=== PATIENT | male | born 1950 | race Caucasian/White ===

== ENCOUNTER 2023-03-02 16:52 | Inpatient (IN) | payer MEDICARE ==
[2023-03-02 18:16] LABS: #Monocytes 0.6 thou/uL (0.11-0.59); #Neutrophils 11.6 thou/uL (1.40-6.50); %Basophils 0.3 % (0.0-1.0); %Lymphocytes 9.3 % (21.0-51.0); %Monocytes 4.5 % (0.0-10.0); %Neutrophils 85.4 % (42.0-75.0); Hematocrit 32.6 % (42.0-52.0); Hemoglobin 10.9 g/dL (14.0-18.0); Mean Corpuscular HGB CONC 33.4 g/dL (32.0-36.0); Mean Corpuscular Volume 86.7 fl (78.0-98.0); Mean Platelet Volume 10.6 fL (7.4-10.4); Platelet Count 183 10x3/uL (130-400); RBC Distribution Width 14.2 % (11.5-14.5); Red Blood Cell (RBC) Count 3.76 mill/uL (4.70-6.10); White Blood Cell (WBC) Count 13.6 10x3/uL (4.8-10.8)
[2023-03-02 18:38] LABS: ALT (SGPT) 7 U/L (8-55); AST (SGOT) 13 U/L (5-34); Albumin 3.4 g/dL (3.4-4.8); Alkaline Phosphatase 76 U/L (40-110); Anion Gap 13 mmol/L (10-20); BUN (Urea Nitrogen) 14 mg/dL (8.4-25.7); Bilirubin, Total 2.4 mg/dL (0.2-1.2); CK (CPK) 141 U/L (30-200); Calc. Creatinine Clearance 0 mL/min (70-130); Calcium 8.4 mg/dL (7.8-10.44); Carbon Dioxide 21 mmol/L (23-31); Chloride 99 mmol/L (98-107); Estimated GFR 71; Globulin 3.4 g/dL (2.4-3.5); Glucose 239 mg/dL (83-110); Potassium 3.8 mmol/L (3.5-5.1); Protein, Total 6.8 g/dL (5.8-8.1); Sodium 129 mmol/L (136-145)
[2023-03-02 19:04] LABS: Troponin I 0.026 ng/mL (< 0.028)
[2023-03-02] MEDS ORDERED: VANCOMYCIN 2 GRAM/500 ML BAG 2 GM in Premix Bag 1 BAG IVPB SCH (19:30)
[2023-03-02] MEDS ORDERED: Cefepime 2 GM VIAL ONE (20:05)
[2023-03-02 20:58] LABS: Bacteria/HPF None Seen HPF (None Seen); Bilirubin Negative (Negative); Blood, Urine Negative (Negative); CAUTI Indications for Culture Fever or rigors; Clarity Clear (Clear); Glucose, Urine (Dipstick) 100 mg/dL (Negative); Ketone, Urine Negative (Negative); Leukocyte 25 Leu/uL (Negative); Nitrite Negative (Negative); Protein, Urine (Dipstick) 10 mg/dL (Neg-Trace); RBC/HPF 0-3 HPF (0-3); Specific Gravity, Urine 1.012 (1.002-1.036); Squamous Epithelial 0-3 HPF (0-3); Urobilinogen Normal mg/dL (Less than 2)
[2023-03-02 20:59] LABS: Urine Culture Reflex No No
[2023-03-02] MEDS ORDERED: Dextrose 50% Abboject 50 ML SYRINGE SLOW IVP PRN (23:29)
[2023-03-02] MEDS ORDERED: Dextrose 5% in Water 1,000 ML IV PRN (23:29)
[2023-03-02] MEDS ORDERED: Glucagon 1 MG/ML KIT IM PRN (23:29)
[2023-03-02] MEDS ORDERED: Bisacodyl 5 MG TAB PO PRN (23:30)
[2023-03-03 00:32] VITALS: BMI 49.0
[2023-03-03] MEDS ORDERED: Furosemide 40 MG TAB PO SCH (07:30)
[2023-03-03] MEDS ORDERED: Cefepime 1 GM in Sodium Chloride 0.9% 100 ML IVPB SCH (08:00)
[2023-03-03] MEDS: Lisinopril 20 MG TAB PO SCH ×2 (08:19→20:11)
[2023-03-03] MEDS: Potassium Chloride 20 MEQ TAB PO SCH (08:20)
[2023-03-03] MEDS: Carvedilol 25 MG TAB PO SCH ×2 (08:20→17:23)
[2023-03-03] MEDS: Insulin Glargine 30 UNITS/0.3 ML VIAL SC SCH (08:20)
[2023-03-03] MEDS ORDERED: Vancomycin 1.5 GRAM/300 ML BAG 1.5 GM in Premix Bag 1 BAG IVPB SCH (09:00)
[2023-03-03] MEDS ORDERED: VANCOMYCIN 2 GRAM/500 ML BAG 2 GM in Premix Bag 1 BAG IVPB SCH (09:00)
[2023-03-03 09:52] LABS: #Basophils 0.1 thou/uL (0.0-0.2); #Eosinphils 0.1 thou/uL (0.0-0.7); #Monocytes 0.8 thou/uL (0.11-0.59); #Neutrophils 7.7 thou/uL (1.40-6.50); %Basophils 0.5 % (0.0-1.0); %Eosinophils 1.4 % (0.0-10.0); %Lymphocytes 13.6 % (21.0-51.0); %Monocytes 7.7 % (0.0-10.0); %Neutrophils 76.1 % (42.0-75.0); Hematocrit 34.6 % (42.0-52.0); Hemoglobin 11.1 g/dL (14.0-18.0); Mean Corpuscular HGB CONC 32.1 g/dL (32.0-36.0); Mean Corpuscular Hemoglobin 28.7 pg (27.0-31.0); Platelet Count 169 10x3/uL (130-400); RBC Distribution Width 14.5 % (11.5-14.5); Red Blood Cell (RBC) Count 3.87 mill/uL (4.70-6.10); White Blood Cell (WBC) Count 10.1 10x3/uL (4.8-10.8)
[2023-03-03 09:55] LABS: Mean Corpuscular Volume 89.4 fl (78.0-98.0)
[2023-03-03 10:15] LABS: ALT (SGPT) 7 U/L (8-55); AST (SGOT) 12 U/L (5-34); Albumin 2.9 g/dL (3.4-4.8); Alkaline Phosphatase 75 U/L (40-110); Anion Gap 9 mmol/L (10-20); BUN (Urea Nitrogen) 13 mg/dL (8.4-25.7); Bilirubin, Total 1.8 mg/dL (0.2-1.2); Calc. Creatinine Clearance 152 mL/min (70-130); Calcium 8.3 mg/dL (7.8-10.44); Carbon Dioxide 24 mmol/L (23-31); Chloride 103 mmol/L (98-107); Estimated GFR 85; Globulin 3.3 g/dL (2.4-3.5); Glucose 202 mg/dL (83-110); Protein, Total 6.2 g/dL (5.8-8.1); Sodium 132 mmol/L (136-145)
[2023-03-03] MEDS ORDERED: Electrolyte Replacement Protocol 1 EACH FS ONE (14:14)
[2023-03-03] MEDS ORDERED: Furosemide 40 MG/4 ML VIAL SLOW IVP SCH (14:15)
[2023-03-03] MEDS ORDERED: Electrolyte Replacement Protocol FS PRN (14:30)
[2023-03-03] MEDS: metFORMIN 500 MG TAB PO SCH (17:23)
[2023-03-03] MEDS: HumaLOG 300 UNITS/3 ML VIAL SC PRN (17:23)
[2023-03-03] MEDS: Atorvastatin Calcium 20 MG TAB PO SCH (20:12)
[2023-03-03] MEDS: Cefepime 2 GM in Sodium Chloride 0.9% 100 ML IVPB SCH (20:12)
[2023-03-03] MEDS: Terbinafine 1% Cream 15 GM Tube TOP SCH (20:14)
[2023-03-03] MEDS: Vancomycin 1 GM in Premix Bag 1 BAG IVPB SCH (20:59)
[2023-03-04] MEDS: HumaLOG 300 UNITS/3 ML VIAL SC PRN (05:53)
[2023-03-04] MEDS ORDERED: Furosemide 40 MG/4 ML VIAL SLOW IVP SCH (06:00)
[2023-03-04 08:38] LABS: #Basophils 0.1 thou/uL (0.0-0.2); #Eosinphils 0.3 thou/uL (0.0-0.7); #Monocytes 0.7 thou/uL (0.11-0.59); #Neutrophils 5.3 thou/uL (1.40-6.50); %Basophils 0.6 % (0.0-1.0); %Eosinophils 3.4 % (0.0-10.0); %Lymphocytes 22.2 % (21.0-51.0); %Neutrophils 65.3 % (42.0-75.0); Hematocrit 37.3 % (42.0-52.0); Mean Corpuscular HGB CONC 32.2 g/dL (32.0-36.0); Mean Corpuscular Hemoglobin 28.1 pg (27.0-31.0); Mean Corpuscular Volume 87.4 fl (78.0-98.0); Mean Platelet Volume 10.6 fL (7.4-10.4); Platelet Count 192 10x3/uL (130-400); RBC Distribution Width 14.3 % (11.5-14.5); Red Blood Cell (RBC) Count 4.27 mill/uL (4.70-6.10); White Blood Cell (WBC) Count 8.1 10x3/uL (4.8-10.8)
[2023-03-04] MEDS: Terbinafine 1% Cream 15 GM Tube TOP SCH ×2 (08:40→20:49)
[2023-03-04] MEDS: metFORMIN 500 MG TAB PO SCH ×2 (08:40→18:17)
[2023-03-04] MEDS: Potassium Chloride 20 MEQ TAB PO SCH ×2 (08:41→18:18)
[2023-03-04] MEDS: Lisinopril 20 MG TAB PO SCH ×2 (08:41→20:51)
[2023-03-04] MEDS: Cefepime 2 GM in Sodium Chloride 0.9% 100 ML IVPB SCH ×2 (08:41→20:43)
[2023-03-04] MEDS: FLUoxetine HCl 20 MG CAP PO SCH (08:41)
[2023-03-04] MEDS: Insulin Glargine 30 UNITS/0.3 ML VIAL SC SCH (08:41)
[2023-03-04] MEDS: Carvedilol 25 MG TAB PO SCH (08:41)
[2023-03-04] MEDS: Aquaphor 3.5 oz 99 GM JAR TOP SCH (08:42)
[2023-03-04 09:04] LABS: Anion Gap 12 mmol/L (10-20); BUN (Urea Nitrogen) 15 mg/dL (8.4-25.7); Calc. Creatinine Clearance 134 mL/min (70-130); Calcium 8.4 mg/dL (7.8-10.44); Carbon Dioxide 24 mmol/L (23-31); Chloride 101 mmol/L (98-107); Estimated GFR 76; Glucose 172 mg/dL (83-110); Magnesium 1.5 mg/dL (1.6-2.6); Potassium 3.3 mmol/L (3.5-5.1); Sodium 134 mmol/L (136-145)
[2023-03-04] MEDS: Vancomycin 1 GM in Premix Bag 1 BAG IVPB SCH ×2 (10:13→21:51)
[2023-03-04] MEDS ORDERED: Magnesium 2 GM/50 ML(in water) 2 GM in Premix Bag 1 BAG IVPB SCH (13:30)
[2023-03-04] MEDS ORDERED: Potassium Chloride 20 MEQ TAB PO SCH (13:30)
[2023-03-04] MEDS: Furosemide 100 MG/10 ML VIAL SLOW IVP SCH (13:32)
[2023-03-04] MEDS: HumaLOG 300 UNITS/3 ML VIAL SC SCH ×3 (13:33→21:48)
[2023-03-04] MEDS: Carvedilol 6.25 MG TAB PO SCH (18:17)
[2023-03-04 20:27] LABS: Vancomycin, Trough 19.9 ug/mL
[2023-03-04] MEDS: Atorvastatin Calcium 20 MG TAB PO SCH (20:44)
[2023-03-05] MEDS: Furosemide 100 MG/10 ML VIAL SLOW IVP SCH ×2 (06:30→14:45)
[2023-03-05 06:45] LABS: #Basophils 0.1 thou/uL (0.0-0.2); #Eosinphils 0.4 thou/uL (0.0-0.7); #Monocytes 0.7 thou/uL (0.11-0.59); #Neutrophils 4.4 thou/uL (1.40-6.50); %Basophils 0.7 % (0.0-1.0); %Eosinophils 5.1 % (0.0-10.0); %Lymphocytes 27.7 % (21.0-51.0); %Monocytes 8.7 % (0.0-10.0); %Neutrophils 57.4 % (42.0-75.0); Hematocrit 33.7 % (42.0-52.0); Hemoglobin 11.2 g/dL (14.0-18.0); Mean Corpuscular HGB CONC 33.2 g/dL (32.0-36.0); Mean Corpuscular Volume 87.3 fl (78.0-98.0); Mean Platelet Volume 10.9 fL (7.4-10.4); Platelet Count 216 10x3/uL (130-400); RBC Distribution Width 14.2 % (11.5-14.5); Red Blood Cell (RBC) Count 3.86 mill/uL (4.70-6.10); White Blood Cell (WBC) Count 7.6 10x3/uL (4.8-10.8)
[2023-03-05 07:09] LABS: Anion Gap 14 mmol/L (10-20); BUN (Urea Nitrogen) 16 mg/dL (8.4-25.7); Calc. Creatinine Clearance 164 mL/min (70-130); Calcium 8.1 mg/dL (7.8-10.44); Carbon Dioxide 23 mmol/L (23-31); Chloride 103 mmol/L (98-107); Estimated GFR 92; Glucose 172 mg/dL (83-110); Magnesium 1.6 mg/dL (1.6-2.6); Potassium 3.6 mmol/L (3.5-5.1); Sodium 136 mmol/L (136-145)
[2023-03-05] MEDS ORDERED: Potassium Chloride 20 MEQ TAB PO SCH (08:00)
[2023-03-05] MEDS ORDERED: Magnesium 2 GM/50 ML(in water) 2 GM in Premix Bag 1 BAG IVPB SCH (08:00)
[2023-03-05] MEDS: FLUoxetine HCl 20 MG CAP PO SCH (09:22)
[2023-03-05] MEDS: metFORMIN 500 MG TAB PO SCH ×2 (09:22→17:30)
[2023-03-05] MEDS: HumaLOG 300 UNITS/3 ML VIAL SC SCH ×4 (09:23→22:58)
[2023-03-05] MEDS: Carvedilol 6.25 MG TAB PO SCH ×2 (09:23→17:30)
[2023-03-05] MEDS: Insulin Glargine 30 UNITS/0.3 ML VIAL SC SCH (09:23)
[2023-03-05] MEDS: Potassium Chloride 20 MEQ TAB PO SCH ×2 (09:23→17:30)
[2023-03-05] MEDS: Lisinopril 20 MG TAB PO SCH ×2 (09:23→20:29)
[2023-03-05] MEDS: Vancomycin 1 GM in Premix Bag 1 BAG IVPB SCH ×2 (09:24→20:30)
[2023-03-05] MEDS: Terbinafine 1% Cream 15 GM Tube TOP SCH ×2 (09:24→20:35)
[2023-03-05] MEDS: Aquaphor 3.5 oz 99 GM JAR TOP SCH (09:24)
[2023-03-05] MEDS: Cefepime 2 GM in Sodium Chloride 0.9% 100 ML IVPB SCH ×2 (09:32→20:30)
[2023-03-05] MEDS: Atorvastatin Calcium 20 MG TAB PO SCH (20:29)
[2023-03-06 06:31] LABS: #Basophils 0.1 thou/uL (0.0-0.2); #Eosinphils 0.5 thou/uL (0.0-0.7); #Monocytes 0.7 thou/uL (0.11-0.59); %Basophils 0.9 % (0.0-1.0); %Lymphocytes 29.2 % (21.0-51.0); %Monocytes 9.3 % (0.0-10.0); %Neutrophils 53.8 % (42.0-75.0); Hemoglobin 11.3 g/dL (14.0-18.0); Mean Corpuscular HGB CONC 32.3 g/dL (32.0-36.0); Mean Corpuscular Hemoglobin 28.9 pg (27.0-31.0); Mean Corpuscular Volume 89.5 fl (78.0-98.0); Mean Platelet Volume 10.1 fL (7.4-10.4); Platelet Count 217 10x3/uL (130-400); RBC Distribution Width 14.3 % (11.5-14.5); Red Blood Cell (RBC) Count 3.91 mill/uL (4.70-6.10); White Blood Cell (WBC) Count 7.4 10x3/uL (4.8-10.8)
[2023-03-06] MEDS: Furosemide 100 MG/10 ML VIAL SLOW IVP SCH ×2 (06:32→12:13)
[2023-03-06 06:52] LABS: Anion Gap 13 mmol/L (10-20); BUN (Urea Nitrogen) 16 mg/dL (8.4-25.7); Calc. Creatinine Clearance 154 mL/min (70-130); Calcium 8.3 mg/dL (7.8-10.44); Carbon Dioxide 25 mmol/L (23-31); Chloride 101 mmol/L (98-107); Estimated GFR 91; Glucose 182 mg/dL (83-110); Magnesium 2.3 mg/dL (1.6-2.6); Potassium 3.7 mmol/L (3.5-5.1); Sodium 135 mmol/L (136-145)
[2023-03-06 08:22] LABS: Vancomycin, Trough 18.2 ug/mL
[2023-03-06] MEDS: metFORMIN 500 MG TAB PO SCH ×2 (08:30→15:10)
[2023-03-06] MEDS: Lisinopril 20 MG TAB PO SCH (08:30)
[2023-03-06] MEDS: Potassium Chloride 20 MEQ TAB PO SCH ×2 (08:30→15:10)
[2023-03-06] MEDS: Carvedilol 6.25 MG TAB PO SCH ×2 (08:30→15:10)
[2023-03-06] MEDS: FLUoxetine HCl 20 MG CAP PO SCH (08:30)
[2023-03-06] MEDS: Cefepime 2 GM in Sodium Chloride 0.9% 100 ML IVPB SCH (08:30)
[2023-03-06] MEDS: HumaLOG 300 UNITS/3 ML VIAL SC SCH ×3 (08:31→15:36)
[2023-03-06] MEDS: Terbinafine 1% Cream 15 GM Tube TOP SCH (08:43)
[2023-03-06] MEDS: Aquaphor 3.5 oz 99 GM JAR TOP SCH (08:43)
[2023-03-06] MEDS: Insulin Glargine 30 UNITS/0.3 ML VIAL SC SCH (10:51)
[2023-03-06] MEDS: Vancomycin 1 GM in Premix Bag 1 BAG IVPB SCH (10:52)
[2023-03-06 15:26] VITALS: BP 101/66; TEMP 97.6
== END 2023-03-06 17:54 | disposition home or self-care (01) | DRG 872 ==
LOC: ERS 16:52 → T4-A 21:29
PROVIDERS: ADMIT Internal Medicine Nephrology; ATTEND Internal Medicine
DX: A41.9 Sepsis, unspecified organism (principal); L03.115 Cellulitis of right lower limb; E87.1 Hypo-osmolality and hyponatremia; Z68.42 Body mass index [BMI] 45.0-49.9, adult; L03.116 Cellulitis of left lower limb; E78.5 Hyperlipidemia, unspecified; F32.A Depression, unspecified; E11.65 Type 2 diabetes mellitus with hyperglycemia; K21.9 Gastro-esophageal reflux disease without esophagitis; I87.2 Venous insufficiency (chronic) (peripheral); E66.01 Morbid (severe) obesity due to excess calories; I50.811 Acute right heart failure; I48.0 Paroxysmal atrial fibrillation; B35.1 Tinea unguium; I11.0 Hypertensive heart disease with heart failure; Z88.5 Allergy status to narcotic agent; Z88.2 Allergy status to sulfonamides; Z87.891 Personal history of nicotine dependence; Z79.4 Long term (current) use of insulin; Z79.899 Other long term (current) drug therapy; Z79.84 Long term (current) use of oral hypoglycemic drugs
CPT/HCPCS: 36415; 36416; 71045; 80048; 80053; 80202; 81001; 82550; 83605; 83735; 83880; 84484; 85025; 87040; 87086; 93005; 93306; 93970; 96365; 96366; 96367; 97139; J0692; J1650; J1815; J1940; J3370; J3370-JW; J3475; J3490

== ENCOUNTER 2023-07-23 23:34 | Inpatient (IN) | payer MEDICARE ==
[~2023-07-23 23:34] MED LIST: Iopamidol 370 76% 100 ML VIAL ONE
[2023-07-23 23:56] LABS: Actual Bicarbonate (HCO3v) 21.6 mEq/L (22-28); Analyzer IN Cardio ER; Base Excess -2.6 mEq/L (-2.0 to +3.0); Calcium, Ionized (venous) 1.07 mmol/L (1.16-1.32); Chloride (VBG) 101 mmol/L (98-106); Hematocrit-VBG 41 % (42.0-52.0); Hemoglobin (Hb) 14.1 g/dL (12.6-17.4); Potassium (VBG) 4.93 mmol/L (3.70-5.30); Sodium 137 mmol/L (133-146); pH (venous) 7.398 (7.32-7.43)
[2023-07-24] MEDS ORDERED: Furosemide 40 MG (4 mL) VIAL ONE ×2 (00:12→03:20)
[2023-07-24] MEDS ORDERED: Nitroglycerin 2% Ointment 1 INCH/1 GM Packet ONE (00:12)
[2023-07-24 00:34] LABS: #Basophils 0.1 thou/uL (0.0-0.2); #Eosinphils 0.4 thou/uL (0.0-0.7); #Monocytes 0.8 thou/uL (0.11-0.59); #Neutrophils 7.1 thou/uL (1.40-6.50); %Basophils 0.7 % (0.0-1.0); %Eosinophils 3.4 % (0.0-10.0); %Lymphocytes 18.9 % (21.0-51.0); %Monocytes 7.9 % (0.0-10.0); %Neutrophils 68.4 % (42.0-75.0); Hematocrit 42.1 % (42.0-52.0); Hemoglobin 13.1 g/dL (14.0-18.0); Mean Corpuscular HGB CONC 31.1 g/dL (32.0-36.0); Mean Corpuscular Hemoglobin 27.5 pg (27.0-31.0); Mean Corpuscular Volume 88.4 fl (78.0-98.0); Mean Platelet Volume 10.9 fL (7.4-10.4); Platelet Count 302 10x3/uL (130-400); Red Blood Cell (RBC) Count 4.76 mill/uL (4.70-6.10); White Blood Cell (WBC) Count 10.4 10x3/uL (4.8-10.8)
[2023-07-24 00:44] LABS: INR-International Normal Ratio 1.5; PTT 33.8 sec (22.9-36.1); Prothrombin Time 17.7 sec (12.0-14.7)
[2023-07-24 00:59] LABS: ALT (SGPT) 7 U/L (8-55); AST (SGOT) 16 U/L (5-34); Albumin 3.1 g/dL (3.4-4.8); Alkaline Phosphatase 100 U/L (40-110); Anion Gap 18 mmol/L (10-20); BUN (Urea Nitrogen) 8 mg/dL (8.4-25.7); Bilirubin, Total 1.7 mg/dL (0.2-1.2); Calc. Creatinine Clearance 0 mL/min (70-130); Calcium 8.2 mg/dL (7.8-10.44); Carbon Dioxide 23 mmol/L (23-31); Chloride 100 mmol/L (98-107); Estimated GFR 95; Globulin 3.8 g/dL (2.4-3.5); Glucose 231 mg/dL (83-110); Lipase Less than 4 U/L (8-78); Magnesium 1.6 mg/dL (1.6-2.6); Potassium 5.5 mmol/L (3.5-5.1); Protein, Total 6.9 g/dL (5.8-8.1); Sodium 135 mmol/L (136-145)
[2023-07-24 01:06] LABS: Troponin I Less than 0.010 ng/mL (< 0.028)
[2023-07-24] MEDS ORDERED: Cefepime 2 GM VIAL ONE (01:25)
[2023-07-24] MEDS ORDERED: Sodium Chloride 0.9% 100 ML ONE (01:25)
[2023-07-24 01:50] LABS: Bilirubin Negative (Negative); Blood, Urine Trace (Negative); Clarity Clear (Clear); Glucose, Urine (Dipstick) 250 mg/dL (Negative); Ketone, Urine 15 mg/dL (Negative); Leukocyte Negative (Negative); Nitrite Negative (Negative); Protein, Urine (Dipstick) Negative (Neg-Trace); Specific Gravity, Urine 1.025 (1.005-1.030); Urobilinogen 0.2 mg/dL (Less than 2)
[2023-07-24 02:01] LABS: Bacteria/HPF None Seen HPF (None Seen); CAUTI Indications for Culture Alt mental st,lethar; RBC/HPF 0-3 HPF (0-3); Squamous Epithelial 0-3 HPF (0-3)
[2023-07-24 02:02] LABS: Urine Culture Reflex No No
[2023-07-24] MEDS ORDERED: Nitroglycerin 0.4 MG TAB (25 Tab Bottle) ONE (03:21)
[2023-07-24] MEDS ORDERED: Vancomycin (BATCH) 2 GM in Premix 1 BAG IVPB SCH (03:30)
[2023-07-24 03:42] LABS: Anion Gap 17 mmol/L (10-20); BUN (Urea Nitrogen) 8 mg/dL (8.4-25.7); Calc. Creatinine Clearance 0 mL/min (70-130); Calcium 8.2 mg/dL (7.8-10.44); Carbon Dioxide 22 mmol/L (23-31); Chloride 101 mmol/L (98-107); Estimated GFR 93; Glucose 234 mg/dL (83-110); Potassium 4.8 mmol/L (3.5-5.1); Sodium 135 mmol/L (136-145)
[2023-07-24 03:47] LABS: Troponin I 0.183 ng/mL (< 0.028)
[2023-07-24] MEDS ORDERED: Glucagon 1 MG/ML KIT IM PRN (03:47)
[2023-07-24] MEDS ORDERED: Ondansetron PF 4 MG/2 ML Vial IVP PRN (03:47)
[2023-07-24] MEDS ORDERED: Dextrose 50% Abboject 50 ML SYRINGE SLOW IVP PRN (03:47)
[2023-07-24] MEDS ORDERED: Dextrose 5% in Water 1,000 ML IV PRN (03:47)
[2023-07-24] MEDS ORDERED: Acetaminophen 325 MG TAB PO PRN (03:47)
[2023-07-24] MEDS ORDERED: Acetaminophen 650 MG Suppository PR PRN (03:47)
[2023-07-24] MEDS ORDERED: Enoxaparin 120 MG/0.8 ML SYRINGE SC SCH (05:30)
[2023-07-24] MEDS ORDERED: Enoxaparin 30 MG (0.3 mL) SYRINGE SC SCH (05:30)
[2023-07-24 06:06] LABS: SARS-CoV-2 NAA Rapid Test Not Detected (NotDetected)
[2023-07-24] MEDS ORDERED: Electrolyte Replacement Protocol 1 EACH FS SCH (06:15)
[2023-07-24] MEDS ORDERED: Magnesium 2 GM/50 ML(in water) 2 GM in Premix 1 BAG IVPB SCH (06:15)
[2023-07-24] MEDS ORDERED: Electrolyte Replacement Protocol FS PRN (06:15)
[2023-07-24 06:48] LABS: Magnesium 1.5 mg/dL (1.6-2.6)
[2023-07-24 07:21] LABS: Troponin I 0.288 ng/mL (< 0.028)
[2023-07-24] MEDS: HumaLOG 300 UNITS/3 ML VIAL SC PRN ×3 (07:51→19:58)
[2023-07-24] MEDS ORDERED: Cefepime 2 GM in Sodium Chloride 0.9% 100 ML IVPB SCH (09:00)
[2023-07-24] MEDS ORDERED: Enoxaparin 40 MG (0.4 mL) SYRINGE SC SCH (09:00)
[2023-07-24] MEDS ORDERED: Aspirin 81 mg Enteric Coated Tablet PO SCH (10:00)
[2023-07-24 12:01] LABS: Legionella Urinary Ag Negative (Negative); Strep pneumo Urine Ag NEGATIVE (NEGATIVE)
[2023-07-24] MEDS: Furosemide 40 MG (4 mL) VIAL SLOW IVP SCH (13:21)
[2023-07-24] MEDS: Cefepime 2 GM in Sodium Chloride 0.9% 100 ML IVPB SCH (13:21)
[2023-07-24] MEDS: Enoxaparin 120 MG/0.8 ML SYRINGE SC SCH (19:52)
[2023-07-24] MEDS: Carvedilol 6.25 MG TAB PO SCH (19:53)
[2023-07-24] MEDS: Atorvastatin Calcium 20 MG TAB PO SCH (19:53)
[2023-07-24] MEDS: Enoxaparin 30 MG (0.3 mL) SYRINGE SC SCH (19:53)
[2023-07-24] MEDS: Amiodarone 200 MG TAB PO SCH (19:53)
[2023-07-25] MEDS: Cefepime 2 GM in Sodium Chloride 0.9% 100 ML IVPB SCH ×2 (02:18→14:53)
[2023-07-25 05:49] LABS: #Eosinphils 0.6 thou/uL (0.0-0.7); #Monocytes 0.7 thou/uL (0.11-0.59); #Neutrophils 3.1 thou/uL (1.40-6.50); %Basophils 0.6 % (0.0-1.0); %Eosinophils 8.9 % (0.0-10.0); %Lymphocytes 29.6 % (21.0-51.0); %Neutrophils 49.1 % (42.0-75.0); Hematocrit 36.3 % (42.0-52.0); Hemoglobin 11.5 g/dL (14.0-18.0); Mean Corpuscular HGB CONC 31.7 g/dL (32.0-36.0); Mean Corpuscular Hemoglobin 28.2 pg (27.0-31.0); Mean Platelet Volume 10.3 fL (7.4-10.4); Platelet Count 272 10x3/uL (130-400); RBC Distribution Width 14.2 % (11.5-14.5); Red Blood Cell (RBC) Count 4.08 mill/uL (4.70-6.10); White Blood Cell (WBC) Count 6.3 10x3/uL (4.8-10.8)
[2023-07-25 06:09] LABS: Anion Gap 12 mmol/L (10-20); BUN (Urea Nitrogen) 11 mg/dL (8.4-25.7); Calc. Creatinine Clearance 163 mL/min (70-130); Carbon Dioxide 30 mmol/L (23-31); Cardiac Risk 3.7 (Less than 4.5); Chloride 98 mmol/L (98-107); Cholesterol 99 mg/dl (< 200 Desired); Estimated GFR 92; Glucose 231 mg/dL (83-110); HDL Cholesterol 27 mg/dL (>60 Neg Risk); LDL Cholesterol, Calculated 51 mg/dL; Magnesium 1.6 mg/dL (1.6-2.6); Potassium 3.7 mmol/L (3.5-5.1); Sodium 136 mmol/L (136-145); Triglycerides 106 mg/dL (Less than 150)
[2023-07-25] MEDS: Furosemide 40 MG (4 mL) VIAL SLOW IVP SCH ×2 (06:21→17:50)
[2023-07-25] MEDS: HumaLOG 300 UNITS/3 ML VIAL SC PRN ×4 (06:21→20:31)
[2023-07-25] MEDS ORDERED: Magnesium 2 GM/50 ML(in water) 2 GM in Premix 1 BAG IVPB SCH (08:00)
[2023-07-25] MEDS: Magnesium Oxide 400 MG TAB PO SCH (08:59)
[2023-07-25] MEDS: Aspirin Chewable 81 MG TAB PO SCH (08:59)
[2023-07-25] MEDS: FLUoxetine HCl 20 MG CAP PO SCH (09:00)
[2023-07-25] MEDS: Carvedilol 6.25 MG TAB PO SCH ×3 (09:00→20:51)
[2023-07-25] MEDS: BuPROPion XL 150 MG ER.TAB PO SCH (09:00)
[2023-07-25] MEDS ORDERED: BuPROPion XL 150 MG ER.TAB PO SCH (09:00)
[2023-07-25] MEDS: Amiodarone 200 MG TAB PO SCH ×3 (09:00→20:51)
[2023-07-25] MEDS: Enoxaparin 120 MG/0.8 ML SYRINGE SC SCH ×2 (09:00→20:29)
[2023-07-25] MEDS: Enoxaparin 30 MG (0.3 mL) SYRINGE SC SCH ×2 (09:01→20:29)
[2023-07-25] MEDS: Atorvastatin Calcium 20 MG TAB PO SCH (20:30)
[2023-07-26] MEDS: Cefepime 2 GM in Sodium Chloride 0.9% 100 ML IVPB SCH ×2 (02:14→14:17)
[2023-07-26 05:58] LABS: #Basophils 0.1 thou/uL (0.0-0.2); #Eosinphils 0.6 thou/uL (0.0-0.7); #Monocytes 0.8 thou/uL (0.11-0.59); #Neutrophils 3.5 thou/uL (1.40-6.50); %Basophils 0.9 % (0.0-1.0); %Eosinophils 8.1 % (0.0-10.0); %Lymphocytes 32.2 % (21.0-51.0); %Monocytes 11.1 % (0.0-10.0); Hematocrit 37.8 % (42.0-52.0); Hemoglobin 11.9 g/dL (14.0-18.0); Mean Corpuscular HGB CONC 31.5 g/dL (32.0-36.0); Mean Corpuscular Hemoglobin 27.8 pg (27.0-31.0); Mean Corpuscular Volume 88.3 fl (78.0-98.0); Mean Platelet Volume 10.4 fL (7.4-10.4); Platelet Count 288 10x3/uL (130-400); RBC Distribution Width 14.2 % (11.5-14.5); Red Blood Cell (RBC) Count 4.28 mill/uL (4.70-6.10); White Blood Cell (WBC) Count 7.4 10x3/uL (4.8-10.8)
[2023-07-26 06:26] LABS: Anion Gap 11 mmol/L (10-20); BUN (Urea Nitrogen) 13 mg/dL (8.4-25.7); Calc. Creatinine Clearance 164 mL/min (70-130); Carbon Dioxide 31 mmol/L (23-31); Chloride 97 mmol/L (98-107); Estimated GFR 93; Glucose 236 mg/dL (83-110); Potassium 3.6 mmol/L (3.5-5.1); Sodium 135 mmol/L (136-145)
[2023-07-26] MEDS: HumaLOG 300 UNITS/3 ML VIAL SC PRN ×4 (06:27→21:07)
[2023-07-26] MEDS: Enoxaparin 30 MG (0.3 mL) SYRINGE SC SCH (09:32)
[2023-07-26] MEDS: Magnesium Oxide 400 MG TAB PO SCH (09:32)
[2023-07-26] MEDS: Enoxaparin 120 MG/0.8 ML SYRINGE SC SCH (09:32)
[2023-07-26] MEDS: BuPROPion XL 150 MG ER.TAB PO SCH (09:33)
[2023-07-26] MEDS: Aspirin Chewable 81 MG TAB PO SCH (09:33)
[2023-07-26] MEDS: Carvedilol 6.25 MG TAB PO SCH ×2 (09:33→21:03)
[2023-07-26] MEDS: Furosemide 40 MG (4 mL) VIAL SLOW IVP SCH (09:33)
[2023-07-26] MEDS: FLUoxetine HCl 20 MG CAP PO SCH (09:33)
[2023-07-26] MEDS: Amiodarone 200 MG TAB PO SCH ×2 (09:33→21:03)
[2023-07-26] MEDS ORDERED: Communication Order-Pharmacy FS SCH (10:15)
[2023-07-26] MEDS: Atorvastatin Calcium 20 MG TAB PO SCH (21:03)
[2023-07-27] MEDS: Cefepime 2 GM in Sodium Chloride 0.9% 100 ML IVPB SCH ×2 (02:04→13:57)
[2023-07-27] MEDS: Carvedilol 6.25 MG TAB PO SCH (05:54)
[2023-07-27] MEDS ORDERED: Sodium Chloride 0.9% 1,000 ML IV SCH ×2 (06:00→09:09)
[2023-07-27 06:01] LABS: Anion Gap 12 mmol/L (10-20); BUN (Urea Nitrogen) 12 mg/dL (8.4-25.7); Calc. Creatinine Clearance 162 mL/min (70-130); Calcium 7.8 mg/dL (7.8-10.44); Carbon Dioxide 30 mmol/L (23-31); Chloride 99 mmol/L (98-107); Estimated GFR 93; Glucose 261 mg/dL (83-110); Potassium 3.5 mmol/L (3.5-5.1); Sodium 137 mmol/L (136-145)
[2023-07-27] MEDS: HumaLOG 300 UNITS/3 ML VIAL SC PRN ×4 (06:17→21:36)
[2023-07-27] MEDS ORDERED: Heparin 10,000 UNITS/ 10 ML VIAL ONE (06:59)
[2023-07-27] MEDS ORDERED: Midazolam HCl 2 mg/2 ml Vial ONE (08:03)
[2023-07-27] MEDS ORDERED: fentaNYL 50 mcg/mL 1 mL Vial ONE (08:03)
[2023-07-27] MEDS ORDERED: Protamine Sulfate 50 MG/5 ML VIAL ONE (08:43)
[2023-07-27] MEDS ORDERED: Nitroglycerin 0.4 MG TAB (25 Tab Bottle) SL PRN (09:06)
[2023-07-27] MEDS ORDERED: Sodium Chloride 0.9% 200 ML IV PRN (09:06)
[2023-07-27] MEDS: Furosemide 40 MG (4 mL) VIAL SLOW IVP SCH (09:43)
[2023-07-27] MEDS: FLUoxetine HCl 20 MG CAP PO SCH (09:43)
[2023-07-27] MEDS: Potassium Chloride 20 MEQ in Premix 1 BAG IVPB SCH ×2 (09:43→13:54)
[2023-07-27] MEDS: Aspirin Chewable 81 MG TAB PO SCH (09:44)
[2023-07-27] MEDS: Magnesium Oxide 400 MG TAB PO SCH (09:44)
[2023-07-27] MEDS: BuPROPion XL 150 MG ER.TAB PO SCH (09:44)
[2023-07-27] MEDS: Amiodarone 200 MG TAB PO SCH ×2 (09:46→21:34)
[2023-07-27] MEDS ORDERED: Iopamidol 370 76% 100 ML VIAL ONE (12:16)
[2023-07-27] MEDS: Carvedilol 3.125 MG TAB PO SCH (17:15)
[2023-07-27 20:24] LABS: Potassium 4.1 mmol/L (3.5-5.1)
[2023-07-27] MEDS: Atorvastatin Calcium 20 MG TAB PO SCH (21:34)
[2023-07-28] MEDS: Cefepime 2 GM in Sodium Chloride 0.9% 100 ML IVPB SCH ×2 (01:12→13:26)
[2023-07-28] MEDS: HumaLOG 300 UNITS/3 ML VIAL SC PRN ×3 (05:35→20:46)
[2023-07-28 05:56] LABS: Magnesium 1.7 mg/dL (1.6-2.6); Phosphorus 2.5 mg/dL (2.3-4.7)
[2023-07-28] MEDS ORDERED: Magnesium 2 GM/50 ML(in water) 2 GM in Premix 1 BAG IVPB SCH (08:00)
[2023-07-28] MEDS: Amiodarone 200 MG TAB PO SCH ×2 (09:44→20:40)
[2023-07-28] MEDS: Sacubitril 24MG/Valsartan 26 MG TAB PO SCH ×2 (09:44→20:40)
[2023-07-28] MEDS: FLUoxetine HCl 20 MG CAP PO SCH (09:44)
[2023-07-28] MEDS: Aspirin Chewable 81 MG TAB PO SCH (09:44)
[2023-07-28] MEDS: Furosemide 40 MG (4 mL) VIAL SLOW IVP SCH (09:45)
[2023-07-28] MEDS: BuPROPion XL 150 MG ER.TAB PO SCH (09:45)
[2023-07-28] MEDS: Carvedilol 3.125 MG TAB PO SCH ×2 (09:45→17:21)
[2023-07-28] MEDS: Magnesium Oxide 400 MG TAB PO SCH (09:45)
[2023-07-28] MEDS: Atorvastatin Calcium 20 MG TAB PO SCH (20:40)
[2023-07-29] MEDS: Cefepime 2 GM in Sodium Chloride 0.9% 100 ML IVPB SCH ×2 (01:56→17:10)
[2023-07-29] MEDS: HumaLOG 300 UNITS/3 ML VIAL SC PRN ×4 (06:28→20:42)
[2023-07-29 07:00] LABS: Magnesium 2.5 mg/dL (1.6-2.6)
[2023-07-29] MEDS: FLUoxetine HCl 20 MG CAP PO SCH (09:35)
[2023-07-29] MEDS: Aspirin Chewable 81 MG TAB PO SCH (09:35)
[2023-07-29] MEDS: Furosemide 40 MG (4 mL) VIAL SLOW IVP SCH (09:36)
[2023-07-29] MEDS: BuPROPion XL 150 MG ER.TAB PO SCH (09:36)
[2023-07-29] MEDS: Sacubitril 24MG/Valsartan 26 MG TAB PO SCH ×2 (09:36→20:40)
[2023-07-29] MEDS: Amiodarone 200 MG TAB PO SCH ×2 (09:36→20:40)
[2023-07-29] MEDS: Magnesium Oxide 400 MG TAB PO SCH (09:36)
[2023-07-29] MEDS: Carvedilol 3.125 MG TAB PO SCH ×2 (12:45→17:10)
[2023-07-29] MEDS: Atorvastatin Calcium 20 MG TAB PO SCH (20:40)
[2023-07-29] MEDS: metFORMIN 500 MG TAB PO SCH (21:01)
[2023-07-30] MEDS: Cefepime 2 GM in Sodium Chloride 0.9% 100 ML IVPB SCH ×2 (01:38→13:56)
[2023-07-30 05:35] LABS: Anion Gap 11 mmol/L (10-20); BUN (Urea Nitrogen) 8 mg/dL (8.4-25.7); Calc. Creatinine Clearance 170 mL/min (70-130); Carbon Dioxide 30 mmol/L (23-31); Chloride 99 mmol/L (98-107); Estimated GFR 95; Glucose 254 mg/dL (83-110); Potassium 3.3 mmol/L (3.5-5.1); Sodium 137 mmol/L (136-145)
[2023-07-30] MEDS: HumaLOG 300 UNITS/3 ML VIAL SC PRN ×3 (06:27→18:26)
[2023-07-30] MEDS: Sacubitril 24MG/Valsartan 26 MG TAB PO SCH ×2 (09:45→20:31)
[2023-07-30] MEDS: Carvedilol 3.125 MG TAB PO SCH ×2 (09:45→16:07)
[2023-07-30] MEDS: Aspirin Chewable 81 MG TAB PO SCH (09:45)
[2023-07-30] MEDS: Amiodarone 200 MG TAB PO SCH ×2 (09:46→20:31)
[2023-07-30] MEDS: metFORMIN 500 MG TAB PO SCH ×2 (09:46→20:31)
[2023-07-30] MEDS: Magnesium Oxide 400 MG TAB PO SCH (09:46)
[2023-07-30] MEDS: Furosemide 40 MG (4 mL) VIAL SLOW IVP SCH (09:46)
[2023-07-30] MEDS: BuPROPion XL 150 MG ER.TAB PO SCH (09:54)
[2023-07-30] MEDS: FLUoxetine HCl 20 MG CAP PO SCH (09:54)
[2023-07-30] MEDS ORDERED: Potassium Chloride 20 MEQ TAB PO SCH (13:30)
[2023-07-30] MEDS: Atorvastatin Calcium 20 MG TAB PO SCH (20:31)
[2023-07-30] MEDS: Ondansetron ODT 4 MG TAB PO PRN (23:52)
[2023-07-31] MEDS: HumaLOG 300 UNITS/3 ML VIAL SC PRN ×4 (00:20→21:10)
[2023-07-31] MEDS: Cefepime 2 GM in Sodium Chloride 0.9% 100 ML IVPB SCH ×2 (02:10→14:31)
[2023-07-31 07:43] LABS: Anion Gap 9 mmol/L (10-20); BUN (Urea Nitrogen) 11 mg/dL (8.4-25.7); Calc. Creatinine Clearance 158 mL/min (70-130); Calcium 8.2 mg/dL (7.8-10.44); Carbon Dioxide 30 mmol/L (23-31); Chloride 100 mmol/L (98-107); Estimated GFR 93; Glucose 213 mg/dL (83-110); Potassium 3.7 mmol/L (3.5-5.1); Sodium 135 mmol/L (136-145)
[2023-07-31] MEDS: FLUoxetine HCl 20 MG CAP PO SCH (09:02)
[2023-07-31] MEDS: metFORMIN 500 MG TAB PO SCH ×2 (09:03→21:09)
[2023-07-31] MEDS: Amiodarone 200 MG TAB PO SCH ×2 (09:03→21:08)
[2023-07-31] MEDS: BuPROPion XL 150 MG ER.TAB PO SCH (09:03)
[2023-07-31] MEDS: Aspirin Chewable 81 MG TAB PO SCH (09:04)
[2023-07-31] MEDS: Sacubitril 24MG/Valsartan 26 MG TAB PO SCH ×2 (09:04→21:10)
[2023-07-31] MEDS: Furosemide 40 MG (4 mL) VIAL SLOW IVP SCH (09:04)
[2023-07-31] MEDS: Carvedilol 3.125 MG TAB PO SCH ×2 (09:04→17:29)
[2023-07-31] MEDS: Magnesium Oxide 400 MG TAB PO SCH (09:04)
[2023-07-31] MEDS ORDERED: Dextrose 50% Abboject 50 ML SYRINGE SLOW IVP PRN (11:25)
[2023-07-31] MEDS: Atorvastatin Calcium 20 MG TAB PO SCH (21:08)
[2023-08-01] MEDS: Cefepime 2 GM in Sodium Chloride 0.9% 100 ML IVPB SCH ×2 (02:51→14:37)
[2023-08-01] MEDS: HumaLOG 300 UNITS/3 ML VIAL SC PRN ×4 (06:09→20:30)
[2023-08-01] MEDS: Aspirin Chewable 81 MG TAB PO SCH (09:45)
[2023-08-01] MEDS: metFORMIN 500 MG TAB PO SCH ×2 (09:46→20:29)
[2023-08-01] MEDS: Carvedilol 3.125 MG TAB PO SCH ×2 (09:46→17:21)
[2023-08-01] MEDS: Sacubitril 24MG/Valsartan 26 MG TAB PO SCH ×2 (09:46→20:29)
[2023-08-01] MEDS: FLUoxetine HCl 20 MG CAP PO SCH (09:47)
[2023-08-01] MEDS: BuPROPion XL 150 MG ER.TAB PO SCH (09:47)
[2023-08-01] MEDS: Magnesium Oxide 400 MG TAB PO SCH (09:48)
[2023-08-01] MEDS: Amiodarone 200 MG TAB PO SCH ×2 (09:48→20:29)
[2023-08-01] MEDS: Furosemide 40 MG (4 mL) VIAL SLOW IVP SCH (09:49)
[2023-08-01] MEDS: Ondansetron ODT 4 MG TAB PO PRN (14:37)
[2023-08-01] MEDS ORDERED: Enoxaparin 40 MG (0.4 mL) SYRINGE SC SCH (14:45)
[2023-08-01] MEDS: Atorvastatin Calcium 20 MG TAB PO SCH (20:29)
[2023-08-02] MEDS ORDERED: Enoxaparin 40 MG (0.4 mL) SYRINGE SC SCH (09:00)
[2023-08-02] MEDS ORDERED: Communication Order-Pharmacy FS PRN (11:37)
[2023-08-02] MEDS: HumaLOG 300 UNITS/3 ML VIAL SC PRN ×2 (12:44→17:18)
[2023-08-02] MEDS: Carvedilol 3.125 MG TAB PO SCH ×2 (14:01→17:18)
[2023-08-02] MEDS: Amiodarone 200 MG TAB PO SCH ×2 (14:02→21:47)
[2023-08-02] MEDS: Aspirin Chewable 81 MG TAB PO SCH (14:02)
[2023-08-02] MEDS: BuPROPion XL 150 MG ER.TAB PO SCH (14:02)
[2023-08-02] MEDS: FLUoxetine HCl 20 MG CAP PO SCH (14:03)
[2023-08-02] MEDS: Furosemide 40 MG (4 mL) VIAL SLOW IVP SCH (14:03)
[2023-08-02] MEDS: Magnesium Oxide 400 MG TAB PO SCH (14:04)
[2023-08-02] MEDS: Sacubitril 24MG/Valsartan 26 MG TAB PO SCH ×2 (14:04→21:46)
[2023-08-02] MEDS: Cefepime 2 GM in Sodium Chloride 0.9% 100 ML IVPB SCH ×2 (14:06→15:17)
[2023-08-02] MEDS: metFORMIN 500 MG TAB PO SCH (14:07)
[2023-08-02] MEDS ORDERED: Atorvastatin Calcium 40 MG TAB PO SCH (21:00)
[2023-08-03] MEDS: Cefepime 2 GM in Sodium Chloride 0.9% 100 ML IVPB SCH (02:13)
[2023-08-03] MEDS: Carvedilol 3.125 MG TAB PO SCH (05:30)
[2023-08-03 06:16] LABS: INR-International Normal Ratio 1.3; Prothrombin Time 16.1 sec (12.0-14.7)
[2023-08-03 06:36] LABS: Hematocrit 38.6 % (42.0-52.0); Hemoglobin 11.9 g/dL (14.0-18.0); Mean Corpuscular HGB CONC 30.8 g/dL (32.0-36.0); Mean Corpuscular Volume 87.5 fl (78.0-98.0); Mean Platelet Volume 11.2 fL (7.4-10.4); Platelet Count 215 10x3/uL (130-400); RBC Distribution Width 14.4 % (11.5-14.5); Red Blood Cell (RBC) Count 4.41 mill/uL (4.70-6.10); White Blood Cell (WBC) Count 6.8 10x3/uL (4.8-10.8)
[2023-08-03 06:59] LABS: Anion Gap 12 mmol/L (10-20); BUN (Urea Nitrogen) 11 mg/dL (8.4-25.7); Calc. Creatinine Clearance 145 mL/min (70-130); Calcium 8.2 mg/dL (7.8-10.44); Carbon Dioxide 27 mmol/L (23-31); Chloride 101 mmol/L (98-107); Estimated GFR 91; Glucose 154 mg/dL (83-110); Potassium 3.7 mmol/L (3.5-5.1); Sodium 136 mmol/L (136-145)
[2023-08-03] MEDS ORDERED: Heparin 10,000 UNITS/1 ML VIAL 30,000 UNITS in Sodium Chloride 0.9% 1,000 ML FS SCH (09:30)
[2023-08-03] MEDS ORDERED: CEFAZOLIN 2 GM VIAL ONE (10:44)
[2023-08-03] MEDS ORDERED: Sodium Chloride 0.9% 100 ML ONE ×2 (10:44→12:56)
[2023-08-03] MEDS ORDERED: Midazolam HCl 2 mg/2 ml Vial ONE (10:50)
[2023-08-03] MEDS ORDERED: ePHEDrine Sulfate 50 MG/10 ML VIAL ONE ×2 (10:50→16:12)
[2023-08-03] MEDS ORDERED: Fentanyl 250 MCG/5 ML VIAL ONE (10:50)
[2023-08-03] MEDS ORDERED: PROPOFOL 20 ML ONE (10:50)
[2023-08-03] MEDS ORDERED: Norepinephrine 4 MG/4 ML VIAL ONE (10:54)
[2023-08-03] MEDS ORDERED: Aminocaproic Acid 5 GM/20 ML VIAL ONE ×2 (10:54→11:37)
[2023-08-03] MEDS ORDERED: Rocuronium Bromide 10 MG/ML (10ML VIAL) ONE ×3 (10:54→16:12)
[2023-08-03] MEDS ORDERED: Esmolol 100 MG/10 ML VIAL ONE (10:54)
[2023-08-03] MEDS ORDERED: PHENYLEPHRINE-NS 100 MCG/ML 10 ML SYRINGE ONE ×2 (10:55→11:22)
[2023-08-03] MEDS ORDERED: Lidocaine 2% PF 5 ML VIAL ONE (10:55)
[2023-08-03] MEDS ORDERED: Lidocaine 2% PF 100 mg/5 ml Syringe ONE ×2 (10:55→11:37)
[2023-08-03] MEDS ORDERED: Lidocaine 1% MPF 2 ML VIAL ONE (11:01)
[2023-08-03] MEDS ORDERED: Bupivacaine PF 0.5% 30 ML VIAL ONE (11:22)
[2023-08-03] MEDS ORDERED: EPINEPHrine 1 MG/ML VIAL ONE (11:22)
[2023-08-03] MEDS ORDERED: Albumin 5% 500 ML ONE (11:23)
[2023-08-03] MEDS ORDERED: Calcium Chloride 1 GM/10 ML Abboject SYRINGE ONE (11:37)
[2023-08-03] MEDS ORDERED: Heparin 5,000 UNITS/ML VIAL ONE (11:37)
[2023-08-03] MEDS ORDERED: Magnesium 5 GM/10 ML VIAL ONE (11:37)
[2023-08-03] MEDS ORDERED: Heparin 30,000 units/30 ml VIAL ONE (11:37)
[2023-08-03] MEDS ORDERED: Vancomycin 1 GM VIAL ONE (11:37)
[2023-08-03] MEDS ORDERED: Protamine Sulfate 250 MG/25 ML VIAL ONE (11:37)
[2023-08-03] MEDS ORDERED: Papaverine 60 MG/2 ML VIAL ONE (11:37)
[2023-08-03] MEDS ORDERED: Cardioplegic Soln 1,000 ML BAG ONE (11:37)
[2023-08-03] MEDS ORDERED: Thrombin 5000 UNITS/5 ML VIAL ONE (11:37)
[2023-08-03] MEDS ORDERED: Potassium Chloride 60 mEq (30 mL) VIAL ONE (11:37)
[2023-08-03] MEDS ORDERED: Sodium Bicarb 50 mEq/50 ML VIAL ONE (11:37)
[2023-08-03] MEDS ORDERED: Mannitol 12.5 GM/50 ML ONE (11:37)
[2023-08-03] MEDS ORDERED: Insulin Regular 300 UNITS/3 ML VIAL ONE (12:47)
[2023-08-03] MEDS ORDERED: Sodium Chloride 0.9% 250 ML 250 ML ONE (12:56)
[2023-08-03] MEDS ORDERED: Guaifenesin DM 100-10/5 ML UDCUP PO PRN (16:31)
[2023-08-03] MEDS ORDERED: Bisacodyl 10 MG SUPP PR PRN (16:31)
[2023-08-03] MEDS ORDERED: niCARdipine 25 MG in Sodium Chloride 0.9% 250 ML 250 ML IVPB PRN (16:31)
[2023-08-03] MEDS ORDERED: fentaNYL 50 mcg/mL 1 mL Vial SLOW IVP PRN ×2 (16:31)
[2023-08-03] MEDS ORDERED: Mag-Al 1200 mg/1200 mg/30 ML UDCUP PO PRN (16:31)
[2023-08-03] MEDS ORDERED: Acetaminophen 325 MG TAB PO PRN (16:31)
[2023-08-03] MEDS ORDERED: Ondansetron PF 4 MG/2 ML Vial IVP PRN (16:31)
[2023-08-03] MEDS ORDERED: HYDROcodone/Acetaminophen 5/325 mg Tablet PO PRN (16:31)
[2023-08-03] MEDS ORDERED: Post-Op Insulin Drip Protocol IVPB SCH (16:31)
[2023-08-03] MEDS ORDERED: Hetastarch 6% 500 ML 500 ML IVPB PRN (16:31)
[2023-08-03] MEDS ORDERED: Nitroglycerin 50 MG/250 ML BOT 250 ML IVPB PRN (16:31)
[2023-08-03] MEDS ORDERED: Morphine 2 MG/ML VIAL SLOW IVP PRN ×2 (16:31→17:45)
[2023-08-03] MEDS ORDERED: NOREPINEPHRINE 8 MG/250 ML-D5W 250 ML IVPB PRN (16:31)
[2023-08-03] MEDS ORDERED: Promethazine HCl 25 MG/ML VIAL IM PRN (16:31)
[2023-08-03] MEDS ORDERED: Albumin 5% 12.5 GM (250 mL) BOT IVPB PRN ×2 (16:31)
[2023-08-03] MEDS ORDERED: Potassium Chloride 20 MEQ (100 mL) BAG IVPB PRN (16:31)
[2023-08-03] MEDS ORDERED: Bisacodyl 5 MG TAB PO PRN (16:31)
[2023-08-03] MEDS ORDERED: Ondansetron PF 4 MG/2 ML Vial ONE (16:37)
[2023-08-03] MEDS ORDERED: HUMULIN R 100 UNITS in Sodium Chloride 0.9% 100 ML IVPB SCH (17:00)
[2023-08-03] MEDS ORDERED: Glucagon 1 MG/ML KIT SC PRN (17:00)
[2023-08-03] MEDS ORDERED: Dextrose 50% Abboject 50 ML SYRINGE SLOW IVP PRN (17:00)
[2023-08-03] MEDS ORDERED: Dextrose 5% in Water 1,000 ML IV PRN (17:00)
[2023-08-03 17:13] LABS: Actual Bicarbonate (HCO3a) 22.7 mEq/L (22-28); CO2 Tension 38.2 mmHg (35.0-45.0); Calcium, Ionized (arterial) 1.06 mmol/L (1.12-1.30); Carboxyhemoglobin (COHb) 1.3 gm% (0.0-3.0); Hematocrit-ABG 35 % (42.0-52.0); Hemoglobin (Hb) 11.9 g/dL (14.0-18.0); O2 Tension (PaO2), arterial 67.2 mmHg (> 70.0); Potassium - ABG Lab 4.01 mmol/L (3.70-5.30); pH, Arterial 7.391 (7.35-7.45)
[2023-08-03 17:14] LABS: Puncture Site Arterial Line
[2023-08-03 17:15] LABS: #Basophils 0.1 thou/uL (0.0-0.2); #Eosinphils 0.2 thou/uL (0.0-0.7); %Basophils 0.5 % (0.0-1.0); %Eosinophils 1.8 % (0.0-10.0); %Lymphocytes 13.8 % (21.0-51.0); %Monocytes 7.5 % (0.0-10.0); %Neutrophils 75.4 % (42.0-75.0); Hematocrit 35.2 % (42.0-52.0); Hemoglobin 10.9 g/dL (14.0-18.0); Mean Corpuscular Hemoglobin 27.8 pg (27.0-31.0); Mean Corpuscular Volume 89.8 fl (78.0-98.0); Mean Platelet Volume 10.8 fL (7.4-10.4); Platelet Count 163 10x3/uL (130-400); RBC Distribution Width 14.4 % (11.5-14.5); Red Blood Cell (RBC) Count 3.92 mill/uL (4.70-6.10); White Blood Cell (WBC) Count 13.3 10x3/uL (4.8-10.8)
[2023-08-03] MEDS ORDERED: Propofol 1,000 MG/100 ML VIAL IV ONE (17:26)
[2023-08-03] MEDS: NS 0.9% w/ 20 MEQ KCL 1,000 ML IV SCH (17:27)
[2023-08-03] MEDS: Ketorolac Tromethamine 30 MG (1 mL) VIAL IVP SCH (17:27)
[2023-08-03] MEDS: CEFAZOLIN 2 GM in Sodium Chloride 0.9% 100 ML IVPB SCH (17:27)
[2023-08-03 17:28] LABS: INR-International Normal Ratio 1.4; Prothrombin Time 17.4 sec (12.0-14.7)
[2023-08-03 17:29] LABS: PTT 28.6 sec (22.9-36.1)
[2023-08-03] MEDS ORDERED: Ventilator Sedation Protocol 1 EACH FS SCH (17:29)
[2023-08-03 17:38] LABS: Glucose 141 mg/dL (83-110)
[2023-08-03 17:42] LABS: Anion Gap 8 mmol/L (10-20); BUN (Urea Nitrogen) 9 mg/dL (8.4-25.7); Calc. Creatinine Clearance 181 mL/min (70-130); Carbon Dioxide 23 mmol/L (23-31); Chloride 108 mmol/L (98-107); Potassium 3.9 mmol/L (3.5-5.1); Sodium 135 mmol/L (136-145)
[2023-08-03 17:43] LABS: Calcium 7.4 mg/dL (7.8-10.44); Estimated GFR 98; Glucose 141 mg/dL (83-110)
[2023-08-03] MEDS ORDERED: Lorazepam 2 MG/ML VIAL SLOW IVP PRN (17:45)
[2023-08-03] MEDS ORDERED: DISCONTINUE PREVIOUS NARCOTIC PAIN MEDICATIONS AND BENZODIAZEPINES FS SCH (17:45)
[2023-08-03] MEDS ORDERED: Fentanyl CADD 100 ML IV SCH (17:45)
[2023-08-03] MEDS ORDERED: Fentanyl BOLUS 250 ML IVPB PRN (17:45)
[2023-08-03] MEDS ORDERED: Propofol BOLUS 1,000 MG/100 ML VIAL IV PRN (17:45)
[2023-08-03] MEDS: Ipratropium/Albuterol 3 ML NEB NEB SCH ×2 (19:13→23:23)
[2023-08-03] MEDS: Famotidine/PF 20 mg/2ml Vial SLOW IVP SCH (20:36)
[2023-08-03] MEDS: Insulin Regular 300 UNITS/3 ML VIAL SC PRN (20:44)
[2023-08-03 23:40] LABS: Hematocrit 32.8 % (42.0-52.0); Hemoglobin 10.3 g/dL (14.0-18.0)
[2023-08-03 23:56] LABS: Potassium 4.7 mmol/L (3.5-5.1)
[2023-08-04] MEDS: Ketorolac Tromethamine 30 MG (1 mL) VIAL IVP SCH ×4 (00:07→17:36)
[2023-08-04] MEDS: Insulin Regular 300 UNITS/3 ML VIAL SC PRN ×5 (00:07→20:53)
[2023-08-04] MEDS: CEFAZOLIN 2 GM in Sodium Chloride 0.9% 100 ML IVPB SCH ×2 (02:08→09:07)
[2023-08-04] MEDS: Propofol 1,000 MG/100 ML VIAL IV PRN ×2 (02:10→03:45)
[2023-08-04] MEDS: NS 0.9% w/ 20 MEQ KCL 1,000 ML IV SCH (03:44)
[2023-08-04 05:04] LABS: #Basophils 0.1 thou/uL (0.0-0.2); #Eosinphils 0.1 thou/uL (0.0-0.7); #Monocytes 0.5 thou/uL (0.11-0.59); #Neutrophils 4.5 thou/uL (1.40-6.50); %Basophils 0.7 % (0.0-1.0); %Eosinophils 1.5 % (0.0-10.0); %Lymphocytes 23.2 % (21.0-51.0); %Monocytes 7.2 % (0.0-10.0); %Neutrophils 66.8 % (42.0-75.0); Hematocrit 31.5 % (42.0-52.0); Hemoglobin 9.9 g/dL (14.0-18.0); Mean Corpuscular HGB CONC 31.4 g/dL (32.0-36.0); Mean Corpuscular Hemoglobin 27.9 pg (27.0-31.0); Mean Corpuscular Volume 88.7 fl (78.0-98.0); Mean Platelet Volume 11.5 fL (7.4-10.4); Platelet Count 142 10x3/uL (130-400); RBC Distribution Width 14.6 % (11.5-14.5); Red Blood Cell (RBC) Count 3.55 mill/uL (4.70-6.10); White Blood Cell (WBC) Count 6.8 10x3/uL (4.8-10.8)
[2023-08-04 05:26] LABS: Anion Gap 9 mmol/L (10-20); BUN (Urea Nitrogen) 10 mg/dL (8.4-25.7); Calc. Creatinine Clearance 189 mL/min (70-130); Calcium 7.3 mg/dL (7.8-10.44); Carbon Dioxide 21 mmol/L (23-31); Chloride 112 mmol/L (98-107); Estimated GFR 98; Glucose 142 mg/dL (83-110); Magnesium 1.7 mg/dL (1.6-2.6); Phosphorus 2.9 mg/dL (2.3-4.7); Potassium 4.1 mmol/L (3.5-5.1); Sodium 138 mmol/L (136-145)
[2023-08-04] MEDS: Ipratropium/Albuterol 3 ML NEB NEB SCH ×3 (06:57→19:55)
[2023-08-04 07:30] LABS: Actual Bicarbonate (HCO3a) 20.4 mEq/L (22-28); Base Excess (BEa) -3.5 mEq/L (-2.0 to +3.0); Calcium, Ionized (arterial) 1.07 mmol/L (1.12-1.30); Carboxyhemoglobin (COHb) 0.5 gm% (0.0-3.0); Hematocrit-ABG 33 % (42.0-52.0); Hemoglobin (Hb) 11.2 g/dL (14.0-18.0); O2 Tension (PaO2), arterial 99.8 mmHg (> 70.0); Potassium - ABG Lab 3.94 mmol/L (3.70-5.30); pH, Arterial 7.409 (7.35-7.45)
[2023-08-04] MEDS: hydrALAZINE 20 MG/ML VIAL SLOW IVP PRN ×2 (07:32→13:06)
[2023-08-04 07:35] LABS: Puncture Site Arterial Line
[2023-08-04] MEDS ORDERED: Magnesium 2 GM/50 ML(in water) 2 GM in Premix 1 BAG IVPB SCH (08:30)
[2023-08-04] MEDS: D5 1/2 NS w/20 mEq KCL 1,000 ML IV SCH ×2 (09:07→15:53)
[2023-08-04] MEDS: Famotidine/PF 20 mg/2ml Vial SLOW IVP SCH ×2 (09:08→20:53)
[2023-08-04] MEDS: Aspirin 325 MG TAB PO SCH (09:08)
[2023-08-04] MEDS ORDERED: Amiodarone 200 MG TAB PO SCH (09:15)
[2023-08-04] MEDS ORDERED: Insulin Glargine 30 UNITS/0.3 ML VIAL SC PRN (16:57)
[2023-08-04] MEDS: Metoprolol Tartrate 25 MG TAB PO SCH (20:53)
[2023-08-04] MEDS: Atorvastatin Calcium 20 MG TAB PO SCH (20:53)
[2023-08-05] MEDS: D5 1/2 NS w/20 mEq KCL 1,000 ML IV SCH (00:11)
[2023-08-05] MEDS: Ketorolac Tromethamine 30 MG (1 mL) VIAL IVP SCH ×5 (00:11→23:06)
[2023-08-05] MEDS: Insulin Regular 300 UNITS/3 ML VIAL SC PRN ×6 (00:25→19:32)
[2023-08-05] MEDS: Ipratropium/Albuterol 3 ML NEB NEB SCH ×2 (02:02→08:24)
[2023-08-05 04:14] LABS: #Basophils 0.1 thou/uL (0.0-0.2); #Eosinphils 0.1 thou/uL (0.0-0.7); #Neutrophils 6.8 thou/uL (1.40-6.50); %Basophils 0.6 % (0.0-1.0); %Eosinophils 1.2 % (0.0-10.0); %Lymphocytes 16.6 % (21.0-51.0); %Monocytes 9.9 % (0.0-10.0); %Neutrophils 71.3 % (42.0-75.0); Hematocrit 34.3 % (42.0-52.0); Hemoglobin 10.4 g/dL (14.0-18.0); Mean Corpuscular HGB CONC 30.3 g/dL (32.0-36.0); Mean Corpuscular Hemoglobin 27.4 pg (27.0-31.0); Mean Corpuscular Volume 90.3 fl (78.0-98.0); Mean Platelet Volume 12.1 fL (7.4-10.4); Platelet Count 167 10x3/uL (130-400); White Blood Cell (WBC) Count 9.6 10x3/uL (4.8-10.8)
[2023-08-05 04:40] LABS: Anion Gap 7 mmol/L (10-20); BUN (Urea Nitrogen) 10 mg/dL (8.4-25.7); Calc. Creatinine Clearance 168 mL/min (70-130); Calcium 7.5 mg/dL (7.8-10.44); Carbon Dioxide 25 mmol/L (23-31); Chloride 108 mmol/L (98-107); Estimated GFR 95; Glucose 246 mg/dL (83-110); Phosphorus 2.2 mg/dL (2.3-4.7); Sodium 135 mmol/L (136-145)
[2023-08-05] MEDS ORDERED: Nitroglycerin 0.4 MG TAB (25 Tab Bottle) SL PRN (08:33)
[2023-08-05] MEDS ORDERED: Ipratropium/Albuterol 3 ML NEB NEB PRN (08:33)
[2023-08-05] MEDS ORDERED: Mineral Oil ENEMA PR PRN (08:33)
[2023-08-05] MEDS ORDERED: Artificial Tear Sol 15 ML BOT EA EYE PRN (08:33)
[2023-08-05] MEDS: Metoprolol Tartrate 25 MG TAB PO SCH ×2 (09:00→20:50)
[2023-08-05] MEDS: Amiodarone 200 MG TAB PO SCH (09:00)
[2023-08-05] MEDS: Aspirin 325 MG TAB PO SCH (09:00)
[2023-08-05] MEDS ORDERED: HUMULIN R 100 UNITS in Sodium Chloride 0.9% 100 ML IVPB SCH (09:15)
[2023-08-05] MEDS ORDERED: Glucagon 1 MG/ML KIT SC PRN (09:15)
[2023-08-05] MEDS ORDERED: Dextrose 5% in Water 1,000 ML IV PRN (09:15)
[2023-08-05] MEDS ORDERED: Dextrose 50% Abboject 50 ML SYRINGE SLOW IVP PRN (09:15)
[2023-08-05] MEDS: Famotidine 20 MG TAB PO SCH ×2 (09:52→20:49)
[2023-08-05] MEDS: Furosemide 40 MG TAB PO SCH ×2 (09:52→20:49)
[2023-08-05] MEDS: Polyethylene Glycol 3350 17 GM Packet PO SCH (09:53)
[2023-08-05] MEDS: Insulin Glargine 30 UNITS/0.3 ML VIAL SC SCH ×2 (09:55→20:50)
[2023-08-05] MEDS ORDERED: Sodium Phosphate 15 MMOL in Sodium Chloride 0.9% 250 ML 250 ML IVPB SCH (10:00)
[2023-08-05] MEDS: Atorvastatin Calcium 20 MG TAB PO SCH (20:49)
[2023-08-05] MEDS: Enoxaparin 40 MG (0.4 mL) SYRINGE SC SCH (20:49)
[2023-08-06] MEDS: Insulin Regular 300 UNITS/3 ML VIAL SC PRN ×2 (06:08→12:47)
[2023-08-06] MEDS: Ketorolac Tromethamine 30 MG (1 mL) VIAL IVP SCH ×3 (06:14→17:43)
[2023-08-06] MEDS: Polyethylene Glycol 3350 17 GM Packet PO SCH (07:54)
[2023-08-06] MEDS: Aspirin 325 MG TAB PO SCH (07:55)
[2023-08-06] MEDS: Potassium Chloride 20 MEQ TAB PO SCH (07:55)
[2023-08-06] MEDS: Metoprolol Tartrate 25 MG TAB PO SCH (07:55)
[2023-08-06] MEDS: Amiodarone 200 MG TAB PO SCH (07:55)
[2023-08-06] MEDS: Famotidine 20 MG TAB PO SCH ×2 (07:55→21:28)
[2023-08-06] MEDS: Furosemide 40 MG TAB PO SCH ×2 (07:55→21:28)
[2023-08-06] MEDS: Insulin Glargine 30 UNITS/0.3 ML VIAL SC SCH ×2 (07:56→21:40)
[2023-08-06] MEDS ORDERED: Insulin Glargine 30 UNITS/0.3 ML VIAL SC PRN (09:15)
[2023-08-06] MEDS: Enoxaparin 40 MG (0.4 mL) SYRINGE SC SCH (21:28)
[2023-08-06] MEDS: Atorvastatin Calcium 20 MG TAB PO SCH (21:28)
[2023-08-07 04:36] LABS: Hemoglobin 10.2 g/dL (14.0-18.0); Mean Corpuscular HGB CONC 30.9 g/dL (32.0-36.0); Mean Corpuscular Hemoglobin 27.5 pg (27.0-31.0); Mean Corpuscular Volume 88.9 fl (78.0-98.0); Mean Platelet Volume 11.9 fL (7.4-10.4); Platelet Count 179 10x3/uL (130-400); RBC Distribution Width 15.2 % (11.5-14.5); Red Blood Cell (RBC) Count 3.71 mill/uL (4.70-6.10); White Blood Cell (WBC) Count 8.1 10x3/uL (4.8-10.8)
[2023-08-07 04:59] LABS: Anion Gap 13 mmol/L (10-20); BUN (Urea Nitrogen) 18 mg/dL (8.4-25.7); Calc. Creatinine Clearance 141 mL/min (70-130); Calcium 8.1 mg/dL (7.8-10.44); Carbon Dioxide 20 mmol/L (23-31); Chloride 108 mmol/L (98-107); Estimated GFR 90; Glucose 175 mg/dL (83-110); Potassium 4.5 mmol/L (3.5-5.1); Sodium 136 mmol/L (136-145)
[2023-08-07] MEDS: Amiodarone 200 MG TAB PO SCH (08:59)
[2023-08-07] MEDS: Potassium Chloride 20 MEQ TAB PO SCH (08:59)
[2023-08-07] MEDS: Aspirin 325 MG TAB PO SCH (08:59)
[2023-08-07] MEDS: Famotidine 20 MG TAB PO SCH ×2 (08:59→20:33)
[2023-08-07] MEDS: Furosemide 40 MG TAB PO SCH ×2 (08:59→20:34)
[2023-08-07] MEDS: Metolazone 2.5 MG TAB PO SCH (08:59)
[2023-08-07] MEDS: Polyethylene Glycol 3350 17 GM Packet PO SCH (08:59)
[2023-08-07] MEDS: Carvedilol 3.125 MG TAB PO SCH ×2 (09:00→16:16)
[2023-08-07] MEDS: Sacubitril 24MG/Valsartan 26 MG TAB PO SCH ×2 (09:00→20:33)
[2023-08-07] MEDS: Insulin Glargine 30 UNITS/0.3 ML VIAL SC SCH ×2 (09:07→20:34)
[2023-08-07] MEDS: Atorvastatin Calcium 20 MG TAB PO SCH (20:33)
[2023-08-07] MEDS: Enoxaparin 40 MG (0.4 mL) SYRINGE SC SCH (20:34)
[2023-08-08] MEDS: Insulin Regular 300 UNITS/3 ML VIAL SC PRN ×2 (05:49→17:03)
[2023-08-08 06:17] LABS: Anion Gap 15 mmol/L (10-20); BUN (Urea Nitrogen) 15 mg/dL (8.4-25.7); Calc. Creatinine Clearance 134 mL/min (70-130); Calcium 8.5 mg/dL (7.8-10.44); Carbon Dioxide 20 mmol/L (23-31); Chloride 104 mmol/L (98-107); Estimated GFR 90; Glucose 203 mg/dL (83-110); Potassium 4.3 mmol/L (3.5-5.1); Sodium 135 mmol/L (136-145)
[2023-08-08] MEDS ORDERED: Dextrose 5% in Water 1,000 ML IV PRN (08:01)
[2023-08-08] MEDS ORDERED: Glucagon 1 MG/ML KIT IM PRN (08:01)
[2023-08-08] MEDS ORDERED: Dextrose 50% Abboject 50 ML SYRINGE SLOW IVP PRN (08:01)
[2023-08-08] MEDS ORDERED: Bisacodyl 5 MG TAB PO SCH (09:00)
[2023-08-08] MEDS: Docusate 100 MG CAP PO SCH ×2 (10:18→21:18)
[2023-08-08] MEDS: Polyethylene Glycol 3350 17 GM Packet PO SCH ×2 (10:18→21:19)
[2023-08-08] MEDS: Sacubitril 24MG/Valsartan 26 MG TAB PO SCH ×2 (10:18→21:18)
[2023-08-08] MEDS: Potassium Chloride 20 MEQ TAB PO SCH (10:18)
[2023-08-08] MEDS: Carvedilol 3.125 MG TAB PO SCH ×2 (10:18→17:03)
[2023-08-08] MEDS: Metolazone 2.5 MG TAB PO SCH (10:19)
[2023-08-08] MEDS: Furosemide 40 MG TAB PO SCH ×2 (10:19→21:18)
[2023-08-08] MEDS: Amiodarone 200 MG TAB PO SCH ×2 (10:19→21:19)
[2023-08-08] MEDS: Famotidine 20 MG TAB PO SCH ×2 (10:19→21:19)
[2023-08-08] MEDS: Aspirin 325 MG TAB PO SCH (10:19)
[2023-08-08] MEDS: Insulin Glargine 30 UNITS/0.3 ML VIAL SC SCH ×2 (10:20→21:18)
[2023-08-08] MEDS: Atorvastatin Calcium 20 MG TAB PO SCH (21:18)
[2023-08-08] MEDS: Enoxaparin 40 MG (0.4 mL) SYRINGE SC SCH (21:20)
[2023-08-09 04:29] LABS: Hemoglobin A1c 9.6 % (4.0-6.0)
[2023-08-09 04:50] LABS: Phosphorus 3.9 mg/dL (2.3-4.7)
[2023-08-09 05:02] LABS: Anion Gap 12 mmol/L (10-20); BUN (Urea Nitrogen) 15 mg/dL (8.4-25.7); Calc. Creatinine Clearance 137 mL/min (70-130); Calcium 8.7 mg/dL (7.8-10.44); Carbon Dioxide 27 mmol/L (23-31); Chloride 101 mmol/L (98-107); Estimated GFR 90; Glucose 222 mg/dL (83-110); Magnesium 1.2 mg/dL (1.6-2.6); Potassium 3.9 mmol/L (3.5-5.1); Sodium 136 mmol/L (136-145)
[2023-08-09] MEDS: Insulin Regular 300 UNITS/3 ML VIAL SC PRN ×3 (05:55→21:47)
[2023-08-09] MEDS ORDERED: Magnesium Sulfate 4 GM in Sodium Chloride 0.9% 250 ML 250 ML IVPB SCH (07:00)
[2023-08-09] MEDS ORDERED: Magnesium Sulfate In Water 4 GM in Premix 1 BAG IVPB SCH (08:00)
[2023-08-09] MEDS ORDERED: PIGGYBACK ONE (08:31)
[2023-08-09] MEDS ORDERED: MAGNESIUM SULFATE IN WATER ONE (08:31)
[2023-08-09] MEDS: Furosemide 40 MG TAB PO SCH ×2 (09:06→21:51)
[2023-08-09] MEDS: Polyethylene Glycol 3350 17 GM Packet PO SCH ×2 (09:06→21:51)
[2023-08-09] MEDS: Sacubitril 24MG/Valsartan 26 MG TAB PO SCH ×2 (09:06→21:51)
[2023-08-09] MEDS: Famotidine 20 MG TAB PO SCH ×2 (09:06→21:51)
[2023-08-09] MEDS: Docusate 100 MG CAP PO SCH ×2 (09:06→21:51)
[2023-08-09] MEDS: Amiodarone 200 MG TAB PO SCH ×2 (09:06→21:52)
[2023-08-09] MEDS: Carvedilol 3.125 MG TAB PO SCH ×2 (09:06→17:50)
[2023-08-09] MEDS: Aspirin 325 MG TAB PO SCH (09:06)
[2023-08-09] MEDS: Insulin Glargine 30 UNITS/0.3 ML VIAL SC SCH ×2 (09:07→21:49)
[2023-08-09] MEDS: Potassium Chloride 20 MEQ TAB PO SCH (09:07)
[2023-08-09 15:18] LABS: Magnesium 1.9 mg/dL (1.6-2.6)
[2023-08-09] MEDS: Enoxaparin 40 MG (0.4 mL) SYRINGE SC SCH (21:50)
[2023-08-09] MEDS: Atorvastatin Calcium 20 MG TAB PO SCH (21:51)
[2023-08-10 06:07] LABS: Anion Gap 14 mmol/L (10-20); BUN (Urea Nitrogen) 20 mg/dL (8.4-25.7); Calc. Creatinine Clearance 127 mL/min (70-130); Calcium 8.7 mg/dL (7.8-10.44); Carbon Dioxide 26 mmol/L (23-31); Chloride 100 mmol/L (98-107); Estimated GFR 87; Glucose 184 mg/dL (83-110); Magnesium 1.7 mg/dL (1.6-2.6); Sodium 136 mmol/L (136-145)
[2023-08-10] MEDS: Insulin Regular 300 UNITS/3 ML VIAL SC PRN (06:08)
[2023-08-10] MEDS ORDERED: Magnesium Sulfate In Water 4 GM in Premix 1 BAG IVPB SCH (06:45)
[2023-08-10] MEDS: Sacubitril 24MG/Valsartan 26 MG TAB PO SCH (08:29)
[2023-08-10] MEDS: Carvedilol 3.125 MG TAB PO SCH ×2 (08:29→18:00)
[2023-08-10] MEDS: Amiodarone 200 MG TAB PO SCH ×2 (08:29→20:19)
[2023-08-10] MEDS: Aspirin 325 MG TAB PO SCH (08:29)
[2023-08-10] MEDS: Polyethylene Glycol 3350 17 GM Packet PO SCH ×2 (08:29→20:18)
[2023-08-10] MEDS: Potassium Chloride 20 MEQ TAB PO SCH (08:29)
[2023-08-10] MEDS: Docusate 100 MG CAP PO SCH ×2 (08:30→20:19)
[2023-08-10] MEDS: Insulin Glargine 30 UNITS/0.3 ML VIAL SC SCH ×2 (08:30→20:20)
[2023-08-10] MEDS: Furosemide 40 MG TAB PO SCH ×2 (08:30→20:19)
[2023-08-10] MEDS: Famotidine 20 MG TAB PO SCH ×2 (08:30→20:19)
[2023-08-10] MEDS: Magnesium Oxide 400 MG TAB PO SCH (08:30)
[2023-08-10 12:50] LABS: Actual Bicarbonate (HCO3a) 23.6 mEq/L (22-28); Analyzer IN Cardio OR; Base Excess (BEa) -0.2 mEq/L (-2.0 to +3.0); CO2 Tension 35.3 mmHg (35.0-45.0); Calcium, Ionized (arterial) 1.01 mmol/L (1.12-1.30); Carboxyhemoglobin (COHb) 0.6 gm% (0.0-3.0); Hematocrit-ABG 29 % (42.0-52.0); Hemoglobin (Hb) 9.7 g/dL (14.0-18.0); O2 Tension (PaO2), arterial 374.8 mmHg (> 70.0); Potassium - ABG Lab 4.27 mmol/L (3.70-5.30); pH, Arterial 7.443 (7.35-7.45)
[2023-08-10 12:51] LABS: Actual Bicarbonate (HCO3a) 23.7 mEq/L (22-28); Analyzer IN Cardio OR; Base Excess (BEa) -1.8 mEq/L (-2.0 to +3.0); CO2 Tension 43.9 mmHg (35.0-45.0); Calcium, Ionized (arterial) 1.03 mmol/L (1.12-1.30); Carboxyhemoglobin (COHb) 0.2 gm% (0.0-3.0); Hematocrit-ABG 29 % (42.0-52.0); Hemoglobin (Hb) 9.8 g/dL (14.0-18.0); O2 Tension (PaO2), arterial 354.2 mmHg (> 70.0); Potassium - ABG Lab 4.15 mmol/L (3.70-5.30); pH, Arterial 7.351 (7.35-7.45)
[2023-08-10 12:51] LABS: Actual Bicarbonate (HCO3a) 24.1 mEq/L (22-28); Analyzer IN Cardio OR; Base Excess (BEa) -2.7 mEq/L (-2.0 to +3.0); CO2 Tension 50.3 mmHg (35.0-45.0); Calcium, Ionized (arterial) 1.08 mmol/L (1.12-1.30); Carboxyhemoglobin (COHb) 0.7 gm% (0.0-3.0); Hematocrit-ABG 34 % (42.0-52.0); Hemoglobin (Hb) 11.5 g/dL (14.0-18.0); O2 Tension (PaO2), arterial 87.3 mmHg (> 70.0); Potassium - ABG Lab 3.75 mmol/L (3.70-5.30); pH, Arterial 7.298 (7.35-7.45)
[2023-08-10 12:51] LABS: Actual Bicarbonate (HCO3v) 25.4 mEq/L (22-28); Analyzer IN Cardio OR; Base Excess 0.9 mEq/L (-2.0 to +3.0); Calcium, Ionized (venous) 1.01 mmol/L (1.16-1.32); Chloride (VBG) 102 mmol/L (98-106); Hematocrit-VBG 29 % (42.0-52.0); Hemoglobin (Hb) 9.9 g/dL (12.6-17.4); Potassium (VBG) 4.14 mmol/L (3.70-5.30); Sodium 135 mmol/L (133-146); pH (venous) 7.416 (7.32-7.43)
[2023-08-10 12:52] LABS: Actual Bicarbonate (HCO3a) 24.2 mEq/L (22-28); Analyzer IN Cardio OR; Base Excess (BEa) -0.8 mEq/L (-2.0 to +3.0); CO2 Tension 41.2 mmHg (35.0-45.0); Calcium, Ionized (arterial) 1.05 mmol/L (1.12-1.30); Carboxyhemoglobin (COHb) 0.7 gm% (0.0-3.0); Hematocrit-ABG 34 % (42.0-52.0); Hemoglobin (Hb) 11.5 g/dL (14.0-18.0); O2 Tension (PaO2), arterial 294.6 mmHg (> 70.0); Potassium - ABG Lab 3.66 mmol/L (3.70-5.30); pH, Arterial 7.387 (7.35-7.45)
[2023-08-10 12:53] LABS: Actual Bicarbonate (HCO3a) 27.3 mEq/L (22-28); Analyzer IN Cardio OR; Base Excess (BEa) 2.9 mEq/L (-2.0 to +3.0); CO2 Tension 41.3 mmHg (35.0-45.0); Calcium, Ionized (arterial) 1.06 mmol/L (1.12-1.30); Hematocrit-ABG 36 % (42.0-52.0); Hemoglobin (Hb) 12.2 g/dL (14.0-18.0); O2 Tension (PaO2), arterial 207.4 mmHg (> 70.0); Potassium - ABG Lab 3.86 mmol/L (3.70-5.30); pH, Arterial 7.438 (7.35-7.45)
[2023-08-10 12:55] LABS: Puncture Site Arterial Line
[2023-08-10 12:55] LABS: Puncture Site Arterial Line
[2023-08-10 12:55] LABS: Puncture Site Arterial Line
[2023-08-10 12:56] LABS: Puncture Site Arterial Line
[2023-08-10 12:56] LABS: Puncture Site Arterial Line
[2023-08-10 13:37] VITALS: BMI 39.2
[2023-08-10] MEDS ORDERED: Lactated Ringer's 1,000 ML IV SCH (13:45)
[2023-08-10] MEDS: Enoxaparin 40 MG (0.4 mL) SYRINGE SC SCH (20:19)
[2023-08-10] MEDS: Atorvastatin Calcium 20 MG TAB PO SCH (20:19)
[2023-08-10] MEDS: HumaLOG 300 UNITS/3 ML VIAL SC PRN (21:57)
[2023-08-11] MEDS: HumaLOG 300 UNITS/3 ML VIAL SC PRN ×3 (06:05→17:44)
[2023-08-11] MEDS ORDERED: Lactated Ringer's 1,000 ML IV SCH (08:15)
[2023-08-11] MEDS ORDERED: Furosemide 40 MG TAB PO SCH (09:00)
[2023-08-11] MEDS: Amiodarone 200 MG TAB PO SCH (09:45)
[2023-08-11] MEDS: Aspirin 325 MG TAB PO SCH (09:45)
[2023-08-11] MEDS: Potassium Chloride 20 MEQ TAB PO SCH (09:45)
[2023-08-11] MEDS: Docusate 100 MG CAP PO SCH (09:46)
[2023-08-11] MEDS: Magnesium Oxide 400 MG TAB PO SCH (09:46)
[2023-08-11] MEDS: Insulin Glargine 30 UNITS/0.3 ML VIAL SC SCH (09:46)
[2023-08-11] MEDS: Polyethylene Glycol 3350 17 GM Packet PO SCH (09:46)
[2023-08-11] MEDS: Famotidine 20 MG TAB PO SCH (09:46)
[2023-08-11] MEDS: Carvedilol 3.125 MG TAB PO SCH ×2 (10:06→17:44)
[2023-08-11 17:14] VITALS: BP 107/55; TEMP 98.6
== END 2023-08-11 20:55 | DRG 233 ==
LOC: ERS 23:34 → ERHOLD 07-24 02:42 → CCU 07-24 06:33 → 2NO 07-27 19:07 → CCU 08-03 10:39 → 2NO 08-06 16:02
PROVIDERS: ADMIT Student in an Organized Health Care Education/Training Program; ATTEND Hospitalist
PROC: 4A023N7 Measurement of Cardiac Sampling and Pressure, Left Heart, Percutaneous Approach (ICD-10-PCS; 2023-07-27)
PROC: B2151ZZ Fluoroscopy of Left Heart using Low Osmolar Contrast (ICD-10-PCS; 2023-07-27)
PROC: B2111ZZ Fluoroscopy of Multiple Coronary Arteries using Low Osmolar Contrast (ICD-10-PCS; 2023-07-27)
PROC: 4A133R1 Monitoring of Arterial Saturation, Peripheral, Percutaneous Approach (ICD-10-PCS; principal; 2023-08-03)
PROC: 02100Z9 Bypass Coronary Artery, One Artery from Left Internal Mammary, Open Approach (ICD-10-PCS; 2023-08-03)
PROC: 021109W Bypass Coronary Artery, Two Arteries from Aorta with Autologous Venous Tissue, Open Approach (ICD-10-PCS; 2023-08-03)
PROC: 06BQ0ZZ Excision of Left Saphenous Vein, Open Approach (ICD-10-PCS; 2023-08-03)
PROC: 3E033XZ Introduction of Vasopressor into Peripheral Vein, Percutaneous Approach (ICD-10-PCS; 2023-08-03)
PROC: 30233J1 Transfusion of Nonautologous Serum Albumin into Peripheral Vein, Percutaneous Approach (ICD-10-PCS; 2023-08-03)
PROC: 5A1935Z Respiratory Ventilation, Less than 24 Consecutive Hours (ICD-10-PCS; 2023-08-03)
PROC: 5A09357 Assistance with Respiratory Ventilation, Less than 24 Consecutive Hours, Continuous Positive Airway Pressure (ICD-10-PCS; 2023-08-03)
PROC: 5A1221Z Performance of Cardiac Output, Continuous (ICD-10-PCS; 2023-08-03)
PROC: 02L70CK Occlusion of Left Atrial Appendage with Extraluminal Device, Open Approach (ICD-10-PCS; 2023-08-03)
DX: I21.4 Non-ST elevation (NSTEMI) myocardial infarction (principal); I50.43 Acute on chronic combined systolic (congestive) and diastolic (congestive) heart failure; J96.01 Acute respiratory failure with hypoxia; L03.116 Cellulitis of left lower limb; L03.115 Cellulitis of right lower limb; I25.10 Atherosclerotic heart disease of native coronary artery without angina pectoris; I11.0 Hypertensive heart disease with heart failure; E78.5 Hyperlipidemia, unspecified; E11.40 Type 2 diabetes mellitus with diabetic neuropathy, unspecified; K21.9 Gastro-esophageal reflux disease without esophagitis; N40.0 Benign prostatic hyperplasia without lower urinary tract symptoms; F32.A Depression, unspecified; F41.9 Anxiety disorder, unspecified; Z87.891 Personal history of nicotine dependence; E87.5 Hyperkalemia; Z88.5 Allergy status to narcotic agent; Z79.84 Long term (current) use of oral hypoglycemic drugs; Z79.899 Other long term (current) drug therapy; I48.0 Paroxysmal atrial fibrillation; I87.2 Venous insufficiency (chronic) (peripheral); E66.01 Morbid (severe) obesity due to excess calories; Z68.39 Body mass index [BMI] 39.0-39.9, adult; I89.0 Lymphedema, not elsewhere classified; I25.5 Ischemic cardiomyopathy; Z79.82 Long term (current) use of aspirin; Z79.4 Long term (current) use of insulin; E87.6 Hypokalemia; K59.00 Constipation, unspecified; Z11.52 Encounter for screening for COVID-19
CPT/HCPCS: 36415; 36416; 36430; 71045; 71275; 74018; 74230; 80048; 80053; 80061; 81001; 82805; 83036; 83605; 83690; 83735; 83880; 84100; 84145; 84484; 85025; 85027; 85347; 85610; 85730; 86850; 86900; 86901; 87040; 87077; 87086; 87149; 87186; 87449; 87899; 93005; 93010; 93306; 93458; 93798; 94002; 94003; 94150; 94640; 94660; 94760; 96365; 96366; 96367; 96375; 96376; 97139; 99152; 99153; A4311; C1713; C1751; C1769; J0171; J0360; J0665; J0692; J1642; J1644; J1650; J1815; J1885; J1940; J2001; J2150; J2250; J2272; J2405; J2440; J2704; J2720; J3010; J3370; J3475; J3480; J3490; J7050; J7120; J7620; P9045; Q0162; Q9967; S0017; S0028

== ENCOUNTER 2023-09-04 11:53 | Inpatient (IN) | payer MEDICARE ==
[2023-09-04 12:53] LABS: #Basophils 0.1 thou/uL (0.0-0.2); #Eosinphils 0.1 thou/uL (0.0-0.7); #Monocytes 1.1 thou/uL (0.11-0.59); %Basophils 0.6 % (0.0-1.0); %Eosinophils 0.7 % (0.0-10.0); %Lymphocytes 15.3 % (21.0-51.0); %Monocytes 11.5 % (0.0-10.0); %Neutrophils 71.4 % (42.0-75.0); Hematocrit 37.2 % (42.0-52.0); Hemoglobin 11.9 g/dL (14.0-18.0); Mean Corpuscular Hemoglobin 27.4 pg (27.0-31.0); Mean Corpuscular Volume 85.7 fl (78.0-98.0); Platelet Count 236 10x3/uL (130-400); RBC Distribution Width 15.8 % (11.5-14.5); Red Blood Cell (RBC) Count 4.34 mill/uL (4.70-6.10); White Blood Cell (WBC) Count 9.8 10x3/uL (4.8-10.8)
[2023-09-04 13:08] LABS: ALT (SGPT) 19 U/L (8-55); AST (SGOT) 23 U/L (5-34); Albumin 3.8 g/dL (3.4-4.8); Alkaline Phosphatase 124 U/L (40-110); Anion Gap 18 mmol/L (10-20); BUN (Urea Nitrogen) 22 mg/dL (8.4-25.7); Bilirubin, Total 1.7 mg/dL (0.2-1.2); Calc. Creatinine Clearance 0 mL/min (70-130); Calcium 9.9 mg/dL (7.8-10.44); Carbon Dioxide 19 mmol/L (23-31); Chloride 101 mmol/L (98-107); Estimated GFR 59; Globulin 3.9 g/dL (2.4-3.5); Glucose 216 mg/dL (83-110); Magnesium 1.6 mg/dL (1.6-2.6); Potassium 4.8 mmol/L (3.5-5.1); Protein, Total 7.7 g/dL (5.8-8.1); Sodium 133 mmol/L (136-145)
[2023-09-04 13:11] LABS: Troponin I 0.021 ng/mL (< 0.028)
[2023-09-04 13:30] LABS: Influenza A by NAA Not Detected (NotDetected); Influenza B by NAA Not Detected (NotDetected); SARS-CoV-2 NAA Rapid Test Not Detected (NotDetected)
[2023-09-04 15:58] LABS: Lactic Acid 1.5 mmol/L (0.5-2.2)
[2023-09-04 15:59] LABS: Bacteria/HPF None Seen HPF (None Seen); Bilirubin Negative (Negative); Blood, Urine Negative (Negative); CAUTI Indications for Culture Dysuria,urgency,freq; Clarity Clear (Clear); Glucose, Urine (Dipstick) 30 mg/dL (Negative); Ketone, Urine Trace mg/dL (Negative); Leukocyte Negative Leu/uL (Negative); Nitrite Negative (Negative); Protein, Urine (Dipstick) 20 mg/dL (Neg-Trace); RBC/HPF 0-3 HPF (0-3); Specific Gravity, Urine 1.028 (1.002-1.036); Squamous Epithelial 0-3 HPF (0-3); Urobilinogen Normal mg/dL (Less than 2); WBC/HPF 0-3 HPF (0-3); pH, Urine 5.5 (5.0-9.0)
[2023-09-04 16:01] LABS: Urine Culture Reflex No No
[2023-09-04] MEDS ORDERED: Calcium Carbonate 500 MG ChewTAB PO PRN (16:43)
[2023-09-04] MEDS ORDERED: Senokot S 8.6-50 MG TAB PO PRN (16:43)
[2023-09-04] MEDS ORDERED: Ondansetron PF 4 MG/2 ML Vial IVP PRN (16:43)
[2023-09-04] MEDS ORDERED: Acetaminophen 325 MG TAB PO PRN (16:43)
[2023-09-04] MEDS ORDERED: Dextrose 50% Abboject 50 ML SYRINGE SLOW IVP PRN (16:46)
[2023-09-04] MEDS ORDERED: Dextrose 5% in Water 1,000 ML IV PRN (16:46)
[2023-09-04] MEDS ORDERED: Glucagon 1 MG/ML KIT IM PRN (16:46)
[2023-09-04] MEDS ORDERED: Carvedilol 6.25 MG TAB ONE (19:08)
[2023-09-04] MEDS: Sodium Chloride 0.9% 1,000 ML IV SCH (19:14)
[2023-09-04] MEDS: Carvedilol 3.125 MG TAB PO SCH (19:14)
[2023-09-04 22:42] LABS: Troponin I 0.017 ng/mL (< 0.028)
[2023-09-04] MEDS: Insulin Glargine 30 UNITS/0.3 ML VIAL SC SCH (23:03)
[2023-09-04] MEDS: Atorvastatin Calcium 20 MG TAB PO SCH (23:03)
[2023-09-04] MEDS: Amiodarone 200 MG TAB PO SCH (23:03)
[2023-09-05 01:17] LABS: Troponin I 0.023 ng/mL (< 0.028)
[2023-09-05 03:41] LABS: #Eosinphils 0.3 thou/uL (0.0-0.7); #Monocytes 0.8 thou/uL (0.11-0.59); %Basophils 0.6 % (0.0-1.0); %Eosinophils 3.8 % (0.0-10.0); %Monocytes 12.3 % (0.0-10.0); %Neutrophils 44.8 % (42.0-75.0); Hematocrit 30.8 % (42.0-52.0); Hemoglobin 9.7 g/dL (14.0-18.0); Mean Corpuscular HGB CONC 31.5 g/dL (32.0-36.0); Mean Corpuscular Hemoglobin 26.9 pg (27.0-31.0); Mean Corpuscular Volume 85.6 fl (78.0-98.0); Mean Platelet Volume 11.5 fL (7.4-10.4); Platelet Count 172 10x3/uL (130-400); White Blood Cell (WBC) Count 6.7 10x3/uL (4.8-10.8)
[2023-09-05 04:55] LABS: ALT (SGPT) 13 U/L (8-55); AST (SGOT) 17 U/L (5-34); Albumin 2.8 g/dL (3.4-4.8); Alkaline Phosphatase 93 U/L (40-110); Anion Gap 13 mmol/L (10-20); BUN (Urea Nitrogen) 16 mg/dL (8.4-25.7); Bilirubin, Total 0.8 mg/dL (0.2-1.2); Calc. Creatinine Clearance 108 mL/min (70-130); Calcium 7.8 mg/dL (7.8-10.44); Carbon Dioxide 20 mmol/L (23-31); Chloride 107 mmol/L (98-107); Estimated GFR 74; Globulin 2.9 g/dL (2.4-3.5); Glucose 193 mg/dL (83-110); Magnesium 1.8 mg/dL (1.6-2.6); Potassium 3.8 mmol/L (3.5-5.1); Protein, Total 5.7 g/dL (5.8-8.1); Sodium 136 mmol/L (136-145)
[2023-09-05 05:43] VITALS: BMI 39.5
[2023-09-05] MEDS: Enoxaparin 40 MG (0.4 mL) SYRINGE SC SCH (09:05)
[2023-09-05] MEDS: FLUoxetine HCl 20 MG CAP PO SCH (09:06)
[2023-09-05] MEDS: BuPROPion XL 150 MG ER.TAB PO SCH (09:06)
[2023-09-05] MEDS: Magnesium Oxide 400 MG TAB PO SCH (09:06)
[2023-09-05] MEDS: Aspirin 325 MG TAB PO SCH (09:06)
[2023-09-05] MEDS ORDERED: Sodium Chloride 0.9% 1,000 ML IV SCH (14:30)
[2023-09-05] MEDS: Sodium Chloride 0.9% 1,000 ML IV SCH (16:09)
[2023-09-05] MEDS: Nystatin Powder 15 GM BOT TOP SCH ×2 (16:10→21:00)
[2023-09-05] MEDS: HumaLOG 300 UNITS/3 ML VIAL SC PRN ×2 (18:15→21:00)
[2023-09-06 05:44] LABS: #Basophils 0.1 thou/uL (0.0-0.2); #Eosinphils 0.4 thou/uL (0.0-0.7); #Monocytes 0.6 thou/uL (0.11-0.59); #Neutrophils 2.7 thou/uL (1.40-6.50); %Basophils 0.8 % (0.0-1.0); %Eosinophils 6.1 % (0.0-10.0); %Lymphocytes 38.2 % (21.0-51.0); %Monocytes 10.5 % (0.0-10.0); %Neutrophils 44.1 % (42.0-75.0); Hematocrit 33.8 % (42.0-52.0); Hemoglobin 10.2 g/dL (14.0-18.0); Mean Corpuscular HGB CONC 30.2 g/dL (32.0-36.0); Mean Corpuscular Hemoglobin 26.8 pg (27.0-31.0); Mean Corpuscular Volume 88.7 fl (78.0-98.0); Mean Platelet Volume 11.4 fL (7.4-10.4); Platelet Count 171 10x3/uL (130-400); Red Blood Cell (RBC) Count 3.81 mill/uL (4.70-6.10); White Blood Cell (WBC) Count 6.1 10x3/uL (4.8-10.8)
[2023-09-06 06:13] LABS: ALT (SGPT) 17 U/L (8-55); AST (SGOT) 20 U/L (5-34); Albumin 2.7 g/dL (3.4-4.8); Alkaline Phosphatase 90 U/L (40-110); Anion Gap 12 mmol/L (10-20); BUN (Urea Nitrogen) 11 mg/dL (8.4-25.7); Bilirubin, Total 0.8 mg/dL (0.2-1.2); Calc. Creatinine Clearance 153 mL/min (70-130); Carbon Dioxide 20 mmol/L (23-31); Chloride 107 mmol/L (98-107); Estimated GFR 94; Globulin 2.9 g/dL (2.4-3.5); Glucose 160 mg/dL (83-110); Potassium 3.9 mmol/L (3.5-5.1); Protein, Total 5.6 g/dL (5.8-8.1); Sodium 135 mmol/L (136-145)
[2023-09-07 04:15] LABS: #Basophils 0.1 thou/uL (0.0-0.2); #Eosinphils 0.4 thou/uL (0.0-0.7); #Monocytes 0.7 thou/uL (0.11-0.59); #Neutrophils 3.1 thou/uL (1.40-6.50); %Basophils 0.7 % (0.0-1.0); %Eosinophils 5.5 % (0.0-10.0); %Lymphocytes 42.7 % (21.0-51.0); %Monocytes 9.5 % (0.0-10.0); %Neutrophils 41.2 % (42.0-75.0); Hematocrit 32.8 % (42.0-52.0); Hemoglobin 10.2 g/dL (14.0-18.0); Mean Corpuscular HGB CONC 31.1 g/dL (32.0-36.0); Mean Corpuscular Hemoglobin 26.9 pg (27.0-31.0); Mean Corpuscular Volume 86.5 fl (78.0-98.0); Mean Platelet Volume 11.5 fL (7.4-10.4); Platelet Count 190 10x3/uL (130-400); RBC Distribution Width 15.9 % (11.5-14.5); Red Blood Cell (RBC) Count 3.79 mill/uL (4.70-6.10); White Blood Cell (WBC) Count 7.5 10x3/uL (4.8-10.8)
[2023-09-07 04:36] LABS: ALT (SGPT) 19 U/L (8-55); AST (SGOT) 22 U/L (5-34); Albumin 2.7 g/dL (3.4-4.8); Alkaline Phosphatase 87 U/L (40-110); Anion Gap 12 mmol/L (10-20); BUN (Urea Nitrogen) 9 mg/dL (8.4-25.7); Bilirubin, Total 0.6 mg/dL (0.2-1.2); Calc. Creatinine Clearance 136 mL/min (70-130); Calcium 7.9 mg/dL (7.8-10.44); Carbon Dioxide 23 mmol/L (23-31); Chloride 108 mmol/L (98-107); Estimated GFR 91; Globulin 2.9 g/dL (2.4-3.5); Glucose 211 mg/dL (83-110); Potassium 3.8 mmol/L (3.5-5.1); Protein, Total 5.6 g/dL (5.8-8.1); Sodium 139 mmol/L (136-145)
[2023-09-08 05:46] LABS: Anion Gap 13 mmol/L (10-20); BUN (Urea Nitrogen) 9 mg/dL (8.4-25.7); Calc. Creatinine Clearance 149 mL/min (70-130); Calcium 7.9 mg/dL (7.8-10.44); Carbon Dioxide 22 mmol/L (23-31); Chloride 107 mmol/L (98-107); Estimated GFR 93; Glucose 190 mg/dL (83-110); Potassium 3.7 mmol/L (3.5-5.1); Sodium 138 mmol/L (136-145)
[2023-09-08 07:58] VITALS: TEMP 98.1
[2023-09-08] MEDS: Furosemide 40 MG TAB PO SCH (09:00)
[2023-09-08 16:32] VITALS: BP 134/63
== END 2023-09-08 20:35 | DRG 641 ==
LOC: SUATTDRO 11:53 → ERS 11:53 → ERHOLD 17:05 → 2SE 20:36 → OBSVTOIN 09-07 11:19
PROVIDERS: ADMIT Internal Medicine; ATTEND Internal Medicine
DX: E86.0 Dehydration (principal); I50.22 Chronic systolic (congestive) heart failure; R55 Syncope and collapse; E87.20 Acidosis, unspecified; E87.1 Hypo-osmolality and hyponatremia; I25.10 Atherosclerotic heart disease of native coronary artery without angina pectoris; I48.91 Unspecified atrial fibrillation; I11.0 Hypertensive heart disease with heart failure; E78.5 Hyperlipidemia, unspecified; E66.9 Obesity, unspecified; Z68.39 Body mass index [BMI] 39.0-39.9, adult; Z88.5 Allergy status to narcotic agent; Z79.84 Long term (current) use of oral hypoglycemic drugs; Z79.82 Long term (current) use of aspirin; Z79.4 Long term (current) use of insulin; G47.33 Obstructive sleep apnea (adult) (pediatric); E11.40 Type 2 diabetes mellitus with diabetic neuropathy, unspecified; K21.9 Gastro-esophageal reflux disease without esophagitis; N40.0 Benign prostatic hyperplasia without lower urinary tract symptoms; Z87.891 Personal history of nicotine dependence; Z66 Do not resuscitate
CPT/HCPCS: 36415; 36416; 51701; 71045; 80048; 80053; 81001; 83605; 83735; 84484; 85025; 93005; 96360; 96361; 96372; 97139; G0378; J1650; J1815; J7050

== ENCOUNTER 2024-05-10 02:36 | Inpatient (IN) | payer MEDICARE ==
[2024-05-10] MEDS ORDERED: Furosemide 40 MG (4 mL) VIAL ONE (03:32)
[2024-05-10 03:54] LABS: #Basophils 0.07 10x3/uL (0.0-0.2); %Basophils 0.8 % (0.0-1.0); %Eosinophils 4.1 % (0.0-10.0); %Monocytes 7.9 % (0.0-10.0); %Neutrophils 71.8 % (42.0-75.0); Hematocrit 34.9 % (42.0-52.0); Hemoglobin 10.6 g/dL (14.0-18.0); Mean Corpuscular HGB CONC 30.4 g/dL (32.0-36.0); Mean Corpuscular Hemoglobin 27.4 pg (27.0-31.0); Mean Corpuscular Volume 90.2 fL (78.0-98.0); Mean Platelet Volume 11.1 fL (7.4-10.4); Platelet Count 172 10x3/uL (130-400); RBC Distribution Width 16.2 % (11.5-14.5); Red Blood Cell (RBC) Count 3.87 mill/uL (4.70-6.10)
[2024-05-10 04:12] LABS: ALT (SGPT) 16 U/L (8-55); AST (SGOT) 19 U/L (5-34); Albumin 3.4 g/dL (3.4-4.8); Alkaline Phosphatase 104 U/L (40-110); Anion Gap 14 mmol/L (10-20); BUN (Urea Nitrogen) 18 mg/dL (8.4-25.7); Bilirubin, Total 1.6 mg/dL (0.2-1.2); Calc. Creatinine Clearance 0 mL/min (70-130); Calcium 8.5 mg/dL (7.8-10.44); Carbon Dioxide 25 mmol/L (23-31); Chloride 104 mmol/L (98-107); Estimated GFR 91; Globulin 3.9 g/dL (2.4-3.5); Glucose 169 mg/dL (83-110); Potassium 4.3 mmol/L (3.5-5.1); Protein, Total 7.3 g/dL (5.8-8.1); Sodium 139 mmol/L (136-145)
[2024-05-10 04:14] LABS: Troponin I Less than 0.010 ng/mL (< 0.028)
[2024-05-10 08:14] LABS: Troponin I 0.014 ng/mL (< 0.028)
[2024-05-10 08:22] VITALS: BMI 43.6
[2024-05-10] MEDS ORDERED: Acetaminophen 325 MG TAB PO PRN (09:34)
[2024-05-10] MEDS ORDERED: Acetaminophen 650 MG Suppository PR PRN (09:34)
[2024-05-10] MEDS ORDERED: Guaifenesin DM 100-10/5 ML UDCUP PO PRN (09:34)
[2024-05-10] MEDS ORDERED: Dextrose 5% in Water 1,000 ML IV PRN (09:45)
[2024-05-10] MEDS ORDERED: Dextrose 50% Abboject 50 ML SYRINGE SLOW IVP PRN (09:45)
[2024-05-10] MEDS ORDERED: Glucagon 1 MG/ML KIT IM PRN (09:45)
[2024-05-10 11:18] LABS: Troponin I 0.018 ng/mL (< 0.028)
[2024-05-10] MEDS: Furosemide 20 MG (2 mL) VIAL SLOW IVP SCH (11:50)
[2024-05-10] MEDS: Dapagliflozin Propanediol 10 MG TAB PO SCH ×2 (11:51→11:52)
[2024-05-10 13:43] VITALS: BMI 43.6
[2024-05-10] MEDS ORDERED: Iopamidol 370 76% 100 ML VIAL ONE (14:00)
[2024-05-10] MEDS ORDERED: Furosemide 20 MG (2 mL) VIAL SLOW IVP SCH (14:00)
[2024-05-10] MEDS: Furosemide 40 MG (4 mL) VIAL SLOW IVP SCH (16:55)
[2024-05-10] MEDS ORDERED: Carvedilol 3.125 MG TAB PO SCH (17:00)
[2024-05-10] MEDS ORDERED: FLU (Fluad Triv) TS24-25 (65UP)/MF59C/PF 45 MCG/0.5 ML Syringe IM ONE (18:00)
[2024-05-10] MEDS: Tamsulosin HCl 0.4 MG CAP PO SCH (20:58)
[2024-05-10] MEDS: Insulin Glargine 30 UNITS/0.3 ML VIAL SC SCH (20:58)
[2024-05-10] MEDS: Atorvastatin Calcium 20 MG TAB PO SCH (20:58)
[2024-05-10] MEDS: Enoxaparin 40 MG (0.4 mL) SYRINGE SC SCH (20:58)
[2024-05-10] MEDS ORDERED: Amiodarone 200 MG TAB PO SCH (21:00)
[2024-05-11 04:39] LABS: #Basophils 0.05 10x3/uL (0.0-0.2); %Basophils 0.7 % (0.0-1.0); %Eosinophils 4.5 % (0.0-10.0); %Lymphocytes 22.7 % (21.0-51.0); %Monocytes 11.4 % (0.0-10.0); %Neutrophils 60.4 % (42.0-75.0); Hematocrit 34.2 % (42.0-52.0); Hemoglobin 10.8 g/dL (14.0-18.0); Mean Corpuscular HGB CONC 31.6 g/dL (32.0-36.0); Mean Corpuscular Hemoglobin 27.4 pg (27.0-31.0); Mean Corpuscular Volume 86.8 fL (78.0-98.0); Mean Platelet Volume 11.7 fL (7.4-10.4); Platelet Count 181 10x3/uL (130-400); Red Blood Cell (RBC) Count 3.94 mill/uL (4.70-6.10)
[2024-05-11 05:11] LABS: ALT (SGPT) 11 U/L (8-55); AST (SGOT) 13 U/L (5-34); Alkaline Phosphatase 93 U/L (40-110); Anion Gap 15 mmol/L (10-20); BUN (Urea Nitrogen) 20 mg/dL (8.4-25.7); Bilirubin, Total 2.3 mg/dL (0.2-1.2); Calc. Creatinine Clearance 151 mL/min (70-130); Calcium 8.7 mg/dL (7.8-10.44); Carbon Dioxide 26 mmol/L (23-31); Chloride 101 mmol/L (98-107); Estimated GFR 91; Globulin 3.4 g/dL (2.4-3.5); Glucose 95 mg/dL (83-110); Potassium 3.7 mmol/L (3.5-5.1); Protein, Total 6.4 g/dL (5.8-8.1); Sodium 138 mmol/L (136-145)
[2024-05-11 05:29] LABS: Free T4 (Free Thyroxine) 0.81 ng/dL (0.70-1.48); Thyroid Stimulating Hormone 2.2961 uIU/mL (0.35-4.94)
[2024-05-11] MEDS: Levothyroxine Sodium 75 MCG TAB PO SCH (06:31)
[2024-05-11] MEDS: FLU (Fluad Triv) TS24-25 (65UP)/MF59C/PF 45 MCG/0.5 ML Syringe IM ONE (08:36)
[2024-05-11] MEDS: FLUoxetine HCl 20 MG CAP PO SCH (08:37)
[2024-05-11] MEDS: BuPROPion XL 150 MG ER.TAB PO SCH (08:37)
[2024-05-11] MEDS: Magnesium Oxide 400 MG TAB PO SCH (08:37)
[2024-05-11] MEDS: Spironolactone 25 MG TAB PO SCH (08:38)
[2024-05-11] MEDS: Pantoprazole DR 40 MG TAB PO SCH (08:38)
[2024-05-11] MEDS: Aspirin Chewable 81 MG TAB PO SCH (08:38)
[2024-05-11] MEDS: Insulin Lispro 100 UNIT/ML 10 ML VIAL SC PRN (12:15)
[2024-05-11] MEDS ORDERED: Electrolyte Replacement Protocol 1 EACH FS SCH (16:15)
[2024-05-11] MEDS: Senokot S 8.6-50 MG TAB PO PRN (21:24)
[2024-05-12 04:32] LABS: #Basophils 0.04 10x3/uL (0.0-0.2); %Basophils 0.5 % (0.0-1.0); %Eosinophils 3.8 % (0.0-10.0); %Lymphocytes 23.9 % (21.0-51.0); %Monocytes 10.2 % (0.0-10.0); %Neutrophils 61.2 % (42.0-75.0); Hematocrit 31.6 % (42.0-52.0); Mean Corpuscular HGB CONC 31.6 g/dL (32.0-36.0); Mean Corpuscular Hemoglobin 26.9 pg (27.0-31.0); Mean Corpuscular Volume 84.9 fL (78.0-98.0); Mean Platelet Volume 11.6 fL (7.4-10.4); Platelet Count 197 10x3/uL (130-400); RBC Distribution Width 16.1 % (11.5-14.5); Red Blood Cell (RBC) Count 3.72 mill/uL (4.70-6.10)
[2024-05-12 05:00] LABS: ALT (SGPT) 11 U/L (8-55); AST (SGOT) 14 U/L (5-34); Albumin 2.9 g/dL (3.4-4.8); Alkaline Phosphatase 83 U/L (40-110); Anion Gap 14 mmol/L (10-20); BUN (Urea Nitrogen) 24 mg/dL (8.4-25.7); Bilirubin, Total 1.7 mg/dL (0.2-1.2); Calc. Creatinine Clearance 116 mL/min (70-130); Calcium 8.5 mg/dL (7.8-10.44); Carbon Dioxide 27 mmol/L (23-31); Chloride 100 mmol/L (98-107); Estimated GFR 72; Globulin 3.4 g/dL (2.4-3.5); Glucose 122 mg/dL (83-110); Potassium 3.6 mmol/L (3.5-5.1); Protein, Total 6.3 g/dL (5.8-8.1); Sodium 137 mmol/L (136-145)
[2024-05-12 14:11] VITALS: BP 115/69; TEMP 98.3
== END 2024-05-12 14:46 | disposition home or self-care (01) | DRG 291 ==
LOC: ERS 02:36 → ERHOLD 06:49 → CCU 08:44 → MSONC 05-11 13:24
PROVIDERS: ADMIT Internal Medicine; ATTEND Internal Medicine
PROC: 5A09357 Assistance with Respiratory Ventilation, Less than 24 Consecutive Hours, Continuous Positive Airway Pressure (ICD-10-PCS; principal; 2024-05-10)
DX: I11.0 Hypertensive heart disease with heart failure (principal); I50.33 Acute on chronic diastolic (congestive) heart failure; J96.01 Acute respiratory failure with hypoxia; E78.5 Hyperlipidemia, unspecified; K21.9 Gastro-esophageal reflux disease without esophagitis; N40.0 Benign prostatic hyperplasia without lower urinary tract symptoms; F32.A Depression, unspecified; F41.9 Anxiety disorder, unspecified; E03.9 Hypothyroidism, unspecified; I48.0 Paroxysmal atrial fibrillation; E66.01 Morbid (severe) obesity due to excess calories; Z66 Do not resuscitate; E11.65 Type 2 diabetes mellitus with hyperglycemia; Z88.5 Allergy status to narcotic agent; Z79.84 Long term (current) use of oral hypoglycemic drugs; Z79.82 Long term (current) use of aspirin; Z79.01 Long term (current) use of anticoagulants; Z79.899 Other long term (current) drug therapy; Z87.891 Personal history of nicotine dependence
CPT/HCPCS: 36415; 36416; 71045; 71275; 80053; 83880; 84439; 84443; 84484; 85025; 85379; 90653; 93005; 93306; 94660; 94760; 96374; 97139; J1650; J1815; J1940; Q9967

== ENCOUNTER 2024-07-23 20:25 | Emergency (ER) | payer MEDICARE ==
[2024-07-24 00:19] LABS: #Basophils 0.04 10x3/uL (0.0-0.2); %Basophils 0.3 % (0.0-1.0); %Eosinophils 0.5 % (0.0-10.0); %Lymphocytes 15.5 % (21.0-51.0); %Monocytes 9.4 % (0.0-10.0); %Neutrophils 73.7 % (42.0-75.0); Hematocrit 37.9 % (42.0-52.0); Hemoglobin 12.2 g/dL (14.0-18.0); Mean Corpuscular HGB CONC 32.2 g/dL (32.0-36.0); Mean Corpuscular Hemoglobin 26.6 pg (27.0-31.0); Mean Corpuscular Volume 82.6 fL (78.0-98.0); Mean Platelet Volume 10.1 fL (7.4-10.4); Platelet Count 231 10x3/uL (130-400); RBC Distribution Width 17.1 % (11.5-14.5); Red Blood Cell (RBC) Count 4.59 mill/uL (4.70-6.10)
[2024-07-24 00:31] LABS: ALT (SGPT) 31 U/L (8-55); AST (SGOT) 25 U/L (5-34); Albumin 2.9 g/dL (3.4-4.8); Alkaline Phosphatase 91 U/L (40-110); Anion Gap 16 mmol/L (10-20); BUN (Urea Nitrogen) 12 mg/dL (8.4-25.7); Bilirubin, Total 1.4 mg/dL (0.2-1.2); Calcium 8.4 mg/dL (7.8-10.44); Carbon Dioxide 21 mmol/L (23-31); Chloride 103 mmol/L (98-107); Globulin 5.1 g/dL (2.4-3.5); Glucose 175 mg/dL (83-110); Sodium 136 mmol/L (136-145)
[2024-07-24 02:14] LABS: Calc. Creatinine Clearance 0 mL/min (70-130); Estimated GFR 89
[2024-07-24] MEDS ORDERED: Ibuprofen 800 MG TAB ONE (03:02)
[2024-07-24] MEDS ORDERED: HYDROcodone/Acetaminophen 5/325 mg Tablet ONE (04:49)
[2024-07-24 06:45] LABS: Bacteria/HPF None Seen HPF (None Seen); Bilirubin Negative (Negative); Blood, Urine Negative (Negative); CAUTI Indications for Culture Pelvic or flank pain; Clarity Clear (Clear); Glucose, Urine (Dipstick) Greater than 1000 mg/dL (Negative); Ketone, Urine Negative (Negative); Leukocyte 25 Leu/uL (Negative); Nitrite Negative (Negative); Protein, Urine (Dipstick) Negative (Neg-Trace); RBC/HPF 0-3 HPF (0-3); Specific Gravity, Urine 1.034 (1.002-1.036); Squamous Epithelial 0-3 HPF (0-3); Urobilinogen Normal mg/dL (Less than 2); pH, Urine 5.5 (5.0-9.0)
[2024-07-24 06:47] LABS: Urine Culture Reflex Yes Yes
[2024-07-24] MEDS ORDERED: Cephalexin 250 MG CAP ONE (07:03)
[2024-07-24] MEDS ORDERED: Acetaminophen 500 MG TAB ONE ×2 (14:53→14:57)
== END 2024-07-24 20:07 ==
LOC: ERS 20:25
DX: M25.562 Pain in left knee (principal); R53.1 Weakness; I11.0 Hypertensive heart disease with heart failure; I50.810 Right heart failure, unspecified; E11.40 Type 2 diabetes mellitus with diabetic neuropathy, unspecified; E11.319 Type 2 diabetes mellitus with unspecified diabetic retinopathy without macular edema; I48.91 Unspecified atrial fibrillation; E78.5 Hyperlipidemia, unspecified; K21.9 Gastro-esophageal reflux disease without esophagitis; Z87.891 Personal history of nicotine dependence; Z79.84 Long term (current) use of oral hypoglycemic drugs; Z79.899 Other long term (current) drug therapy; W01.0XXA Fall on same level from slipping, tripping and stumbling without subsequent striking against object, initial encounter
CPT/HCPCS: 36415; 80053; 81001; 85025; 87086; 99284